=== PATIENT | male | born 1935 | race Caucasian/White ===

== ENCOUNTER 2019-03-04 09:00 | Inpatient (IN) ==
[2019-03-04] MEDS ORDERED: NS 1,000 ML IV SCH (11:52)
[2019-03-04] MEDS ORDERED: TYLENOL PO PRN (11:52)
[2019-03-04] MEDS: DUONEB (A & A) INH SCH ×4 (12:20→23:38)
[2019-03-04 12:47] LABS: BASO# 0.03 X1000 (0.0-0.2); BASO% 0.3 % (0.0-0.8); EOS# 0.01 X1000 (0.0-0.7); EOS% 0.1 % (0.0-10.0); HEMATOCRIT 43.9 % (42.0-52.0); HEMOGLOBIN 15.2 g/dL (14.0-18.0); IMM GRAN# 0.03 X1000 (0.0-0.04); IMM GRAN% 0.3 % (0.0-0.5); LYMPH# 0.75 X1000 (1.2-3.4); LYMPH% 6.3 % (20.5-51.1); MCH 32.4 PG (27-31); MCHC 34.6 g/dL (33-37); MCV 93.6 FL (81-99); MONO# 1.15 X1000 (0.11-0.59); MONO% 9.6 % (1.7-9.3); MPV 10.4 FL (7.4-10.4); NEUT% 83.4 % (42.2-75.2); PLT 155 X1000 (130-400); RBC 4.69 XMIL (4.7-6.1); RDW 14.1 % (11.5-14.5); WBC 11.97 X1000 (4.8-10.8)
--- NOTE | 2019-03-04 12:57 | EKG Report ---
Test Performed on : 03/04/2019 12:40:13 PM Test Reason : [place] Blood Pressure : / mmHG Vent. Rate : 090 BPM Atrial Rate : 115 BPM P-R Int : 000 ms QRS Dur : 134 ms QT Int : 440 ms P-R-T Axes : 000 -03 067 degrees QTc Int : 538 ms Wide QRS rhythm. with frequent and consecutive premature ventricular complexes. Nonspecific intraventricular block Cannot rule out Inferior infarct , age undetermined Cannot rule out Anterior infarct , age undetermined Abnormal ECG When compared with ECG of 01-FEB-2013 10:36, Wide QRS rhythm. has replaced Sinus rhythm. Confirmed by Libby MEI, Ozzy ([id number]) on 03/07/2019 8:46:26 AM
[2019-03-04 13:12] LABS: AGAP 14; ALB/GLOB RATIO 1.2; ALBUMIN 3.7 g/dL (3.5-5.0); ALKALINE PHOSPHATASE 89 U/L (32-122); BUN 10 mg/dL (8-22); CALCIUM 8.3 mg/dL (8.8-10.2); CHLORIDE 94 mmol/L (98-107); CK PROFILE 73 U/L (24-204); COSMO 265; ESTIMATED GFR > 60; GLUCOSE 123 mg/dL (70-104); GOT 21 U/L (10-34); GPT 15 U/L (10-44); SODIUM 132 mmol/L (136-145); TCO2 24 mmol/L (25-35); TOTAL BILIRUBIN 1.15 mg/dL (0.20-1.00); TOTAL PROTEIN 6.8 g/dL (6.3-8.3)
--- NOTE | 2019-03-04 13:18 | Diag Imaging Result Doc PS360 ---
EXAM: CHEST-2 VIEWS 03/04/2019 HISTORY: Pneumonia TECHNIQUE: PA and lateral chest COMMENT: The inspiration is not as optimal as on 12/24/2018 and there is increased opacity in both lung bases particularly in the left costophrenic angle region. There is also some increase in opacity in the mid lung zones and lower right upper lobe. IMPRESSION: Worsened pulmonary edema and/or pneumonia. Electronically signed by Pradeep Kiser 03/04/2019 1:15 PM
[2019-03-04] MEDS: ROCEPHIN 1 GM in NS 50 ML IV SCH (14:05)
[2019-03-04] MEDS: DOXYCYCLINE 100 MG in NS 250 ML IV SCH (14:06)
--- NOTE | 2019-03-04 16:03 | Diag Imaging Result Doc PS360 ---
EXAM: CT THORAX W/CONTRAST 03/04/2019 HISTORY: Pneumonia/ hemoptysis TECHNIQUE: This exam was performed using automated exposure control, adjustment of mA or kV according to patient size, and/or use of iterative reconstruction technique. COMMENT: The current examination is compared with the previous study of 01/06/2019. There is COPD. There are patchy areas of poorly defined opacity in both upper lobes and to some extent in the lung bases. This is worse than on the previous study. There are bilateral pleural effusions which were not present previously. Enlarged mediastinal nodes particularly those in the precarinal region demonstrated previously have not changed significantly. There is coronary atherosclerotic calcification. There is some mucus in the trachea. IMPRESSION: Pneumonia superimposed on COPD. Bilateral pleural effusions. Electronically signed by Pradeep Kiser 03/04/2019 4:00 PM
--- NOTE | 2019-03-04 20:00 | HISTORY AND PHYSICAL ---
PRIMARY CARE PHYSICIAN: Dr. Maximiliano Morris. CHIEF COMPLAINT: Shortness of breath. HISTORY OF PRESENT ILLNESS: An 83-year-old white male with a complicated past medical history presents for evaluation of above-mentioned symptoms. Current history of present illness began Thursday. At that time, patient states he walked into his den of his home and developed significant shortness of breath. Throughout the day his symptoms persisted. He initiated Mucinex without improvement. Soon thereafter, in addition to his shortness of breath, he experienced an episode of hemoptysis. The patient had a busy week and was unable to be evaluated. Over the course of the week, patient states he has been unable to sleep in his bed secondary to shortness of breath. He has had intermittent wheezing. He has noted low-grade fevers but no chills. His energy level has been very low. Because of progressive symptoms, patient presented to my office for further evaluation and management. Upon arrival, patient was noted to be profoundly short of breath with minimal exertion. White count was noted to be elevated. Examination was concerning for an underlying pneumonia. The patient was admitted to the hospital for full evaluation and management. Upon arrival, a chest x-ray was performed followed by a CT scan of the chest confirming underlying pneumonia. The patient will be admitted and treated appropriately. Of note, patient has a longstanding history of dyspnea on exertion. He carries diagnoses of ischemic heart disease as well as COPD. His ischemic heart disease has recently been evaluated by Dr. Pedro. His current symptoms are as described above. He denies nausea, vomiting, palpitations, dysuria, hematuria, pyuria, or change in bowel movements. PAST MEDICAL HISTORY: 1. Osteoarthritis of the right knee. 2. Benign prostatic hypertrophy status post TURP in January 2013. 3. Status post bilateral cataract removal in 2014. 4. Cervical spine disease status post surgical intervention in 1990 and 1994. 5. Chronic ischemic heart disease followed by Dr. Pedro. 6. Diverticulosis diagnosed in 1999 with a rare episode of diverticulitis since that time. 7. Hypertension. 8. Gout. 9. History of presumed hepatitis A in 1969. 10. Hyperlipidemia. 11. Impaired fasting glucose. 12. Chronic low back pain. 13. History of tobacco use. 14. Obstructive sleep apnea. 15. Osteoarthritis. 16. History of paroxysmal atrial fibrillation. 17. 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 18. Longstanding history of elevated PSA. 19. Chronic shortness of breath. 20. Minimal thrombocytopenia. 21. Lower extremity varicosities. 22. Longstanding history of intermittent vertigo. CURRENT MEDICATIONS: 1. B-complex vitamin daily. 2. Claritin 10 mg daily as needed. 3. Eliquis 5 mg twice daily. 4. Flecainide 150 mg twice daily. 5. Lasix 40 mg daily as needed. 6. Indomethacin 50 mg 3 times daily as needed. 7. Lisinopril 40 mg twice daily. 8. Meclizine 25 mg 1/2 to 1 tablet twice daily as needed. 9. Norvasc 5 mg at bedtime. 10. Potassium chloride 20 mEq daily as needed on days taking Lasix. 11. Simvastatin 20 mg at bedtime. ALLERGIES: Patient states he is allergic to codeine which causes a rash and Phenergan. SOCIAL HISTORY: The patient is a former smoker having smoked as much as 2-1/2 packs per day for 30 years. He stopped in 1985. He has approximately 1 to 3 drinks of alcohol per day. He denies illicit drug use. He is retired from [employer]. He currently works part-time with [employer]. He enjoys golf. He does not exercise routinely. FAMILY HISTORY: Patient's father passed at age 63 secondary to complications of an acute myocardial infarction. Patient's mother passed at age 95 secondary to complications of a shoulder fracture. REVIEW OF SYSTEMS: A 12 point review of systems was performed. Pertinent positives and negatives noted in history present illness. PHYSICAL EXAMINATION: VITAL SIGNS: Temperature 98 degrees, heart rate 86, respirations 18, blood pressure is 142/82. GENERAL: Well nourished, well developed, no acute distress. HEENT: Normocephalic, atraumatic. Pupils equal, round, reactive to light. Extraocular muscles intact. Sclerae anicteric. [place] conjunctivae. Oral and nasopharynx clear without exudate. NECK: Supple. No lymphadenopathy. No thyromegaly. No bruits auscultated. CARDIOVASCULAR: Regular rate and rhythm. No significant murmurs, rubs, or gallops. PULMONARY: Crackles at the right base. Adequate air movement. ABDOMEN: Soft, nontender, nondistended. Positive bowel sounds. EXTREMITIES: Moves all extremities well. No significant clubbing, cyanosis, or edema. NEUROLOGIC: Cranial nerves 2-12 grossly intact. Motor and sensory grossly intact. PSYCHOLOGIC: Appropriate. LABORATORY DATA: White blood cell count 11.97, hemoglobin 15.2, hematocrit 43.9, platelet count 155,000. Sodium 132, potassium 4.0, chloride 94, bicarb 24, BUN 10, creatinine 1.0, glucose 123, calcium 8.3, total bilirubin 1.15, total protein 6.8, albumin 3.7, alkaline phosphatase 89, AST 21, ALT 15. CK total 73, troponin less than 0.010. CT scan of the chest reveals pneumonia superimposed on COPD. Bilateral pleural effusions. ASSESSMENT AND PLAN: An 83-year-old white male with past medical history as noted presents for evaluation of profound shortness of breath. CT scan of the chest is consistent with bilateral pneumonia with associated pleural effusions. The patient will be admitted to the hospital for full evaluation and management of this condition. 1. Admit to General Medicine. 2. Pneumonia-as above, this is confirmed per CT scan of the chest. Blood cultures have been drawn. Sputum culture has been ordered. The patient will be started on ceftriaxone and doxycycline therapy. We will initiate routine bronchodilators. We will encourage incentive spirometry and aspiration precautions. 3. Hemoptysis-this is quite concerning. CT scan, however, suggest only pneumonia. No evidence of malignancy is identified. We will remain aware. 4. Bilateral pleural effusions-at this point, this likely is parapneumonic. We will treat patient with antibiotic intervention. We will consider adding a dose of Lasix once his condition has stabilized. 5. Profound shortness of breath-this is likely secondary to above. The patient's oxygen saturation on room air was 90%. He has been placed on oxygen per protocol. We will aggressively manage his pneumonia as described above. 6. Hypertension-we will continue patient on home medications. 7. Hyperlipidemia-we will continue patient on simvastatin therapy. 8. Paroxysmal atrial fibrillation-we will continue flecainide. He is anticoagulated with Eliquis. He is currently asymptomatic in a sinus-generated rhythm. 9. Fluid, electrolytes, nutrition. We will monitor electrolytes. Saline lock IV. Cardiac prudent diet. 10. Prophylaxis. Patient will be continued on Eliquis therapy. cc: Maximiliano Morris MD
[2019-03-04] MEDS: MUCINEX DM PO SCH (20:10)
[2019-03-04] MEDS: ELIQUIS PO SCH (23:34)
[2019-03-04] MEDS: NORVASC PO SCH (23:34)
[2019-03-04] MEDS: ZOCOR PO SCH (23:35)
[2019-03-04] MEDS: PRINIVIL PO SCH (23:35)
[2019-03-04] MEDS: TAMBOCOR PO SCH (23:36)
[2019-03-05] MEDS: DOXYCYCLINE 100 MG in NS 250 ML IV SCH ×2 (01:43→14:36)
[2019-03-05] MEDS: DUONEB (A & A) INH SCH ×6 (03:27→23:21)
[2019-03-05 07:37] LABS: BASO# 0.04 X1000 (0.0-0.2); BASO% 0.4 % (0.0-0.8); EOS# 0.04 X1000 (0.0-0.7); EOS% 0.4 % (0.0-10.0); HEMATOCRIT 41.6 % (42.0-52.0); HEMOGLOBIN 14.3 g/dL (14.0-18.0); IMM GRAN# 0.03 X1000 (0.0-0.04); IMM GRAN% 0.3 % (0.0-0.5); LYMPH# 1.06 X1000 (1.2-3.4); LYMPH% 10.8 % (20.5-51.1); MCH 32.3 PG (27-31); MCHC 34.4 g/dL (33-37); MCV 93.9 FL (81-99); MONO# 1.08 X1000 (0.11-0.59); MPV 10.9 FL (7.4-10.4); NEUT% 77.1 % (42.2-75.2); PLT 126 X1000 (130-400); RBC 4.43 XMIL (4.7-6.1); RDW 14.1 % (11.5-14.5); WBC 9.85 X1000 (4.8-10.8)
[2019-03-05 07:46] LABS: AGAP 12; ALB/GLOB RATIO 1.4; ALBUMIN 3.6 g/dL (3.5-5.0); ALKALINE PHOSPHATASE 77 U/L (32-122); BUN 10 mg/dL (8-22); CALCIUM 7.6 mg/dL (8.8-10.2); CHLORIDE 98 mmol/L (98-107); COSMO 266; CREATININE 0.9 mg/dL (0.7-1.2); ESTIMATED GFR > 60; GLUCOSE 115 mg/dL (70-104); GOT 17 U/L (10-34); GPT 12 U/L (10-44); POTASSIUM 3.9 mmol/L (3.5-5.1); SODIUM 133 mmol/L (136-145); TCO2 23 mmol/L (25-35); TOTAL BILIRUBIN 1.07 mg/dL (0.20-1.00); TOTAL PROTEIN 6.2 g/dL (6.3-8.3)
[2019-03-05] MEDS ORDERED: LASIX IV ONE (09:37)
[2019-03-05] MEDS ORDERED: KLOR-CON PO ONE (09:37)
[2019-03-05] MEDS: TAMBOCOR PO SCH ×3 (10:02→22:37)
[2019-03-05] MEDS: ELIQUIS PO SCH ×3 (10:03→22:37)
[2019-03-05] MEDS: VICON-C PO SCH (10:03)
[2019-03-05] MEDS: MUCINEX DM PO SCH ×3 (10:03→22:38)
[2019-03-05] MEDS: PRINIVIL PO SCH ×3 (10:03→22:38)
--- NOTE | 2019-03-05 10:05 | PROGRESS NOTE ---
DATE: 03/05/2019 SUBJECTIVE: Patient was admitted yesterday with profound shortness of breath. Full evaluation was pursued. Chest x-ray and CT scan suggested an underlying pneumonia. Bilateral pleural effusions were also identified. The patient was started on broad-spectrum antibiotics, oxygen per protocol, and bronchodilators. Over the course of the first 24 hours, patient's overall condition has improved slightly. He continues to have hemoptysis, although this has decreased. He continues to have considerable shortness of breath, although this has improved with oxygen supplementation. He denies current fevers, chills, nausea, vomiting, or chest discomfort. OBJECTIVE: T-max 98.4 degrees, heart rate 73 to 89, respirations 16 to 22, blood pressure 127 to 146 over 66 to 83.General: Well nourished, well developed, no acute distress. Cardiovascular: Regular rate and rhythm. No significant murmurs, rubs, or gallops. Pulmonary: Crackles at bilateral bases, right greater than left, adequate air movement. Abdomen: Soft, nontender, nondistended. Positive bowel sounds. Extremities: Moves all extremities well. No significant clubbing, cyanosis, or edema. Dermatologic: Evaluation reveals no evidence of rash. LABORATORY DATA: White blood cell count 9.85, hemoglobin 14.3, hematocrit 41.6, platelet count 126,000. Sodium 133, potassium 3.9, chloride 98, bicarb 23, BUN 10, creatinine 0.9, glucose 115, calcium 9.6, total bilirubin 1.07, total protein 6.2, albumin 3.6, alkaline phosphatase 77, AST 17, ALT 12. ASSESSMENT AND PLAN: 1. Pneumonia - I suspect this is community-acquired. With Rocephin and doxycycline therapy, his white blood cell count has improved. He does, however, continue to have hemoptysis and significant shortness of breath/hypoxia. Each will be addressed as below. For now, we will continue bronchodilators and broad-spectrum antibiotic coverage. We will encourage incentive spirometry. We will follow his clinical course very closely while hospitalized. 2. Hemoptysis. This likely is a consequence of his underlying pneumonia. There was no evidence of malignancy per CT scan. We will continue aggressive management of pneumonia as above. 3. Bilateral pleural effusions - I suspect this is parapneumonic. I cannot fully rule out underlying cardiac etiology contributing. We will provide a dose of Lasix today. Once again, this will be followed. 4. Profound shortness of breath/hypoxia - patient is being treated with oxygen per protocol. We will treat pneumonia as described above. 5. Hypertension - we will continue patient on home medications. Blood pressure is controlled. 6. Hyperlipidemia - we will continue patient on simvastatin therapy. 7. Paroxysmal atrial fibrillation - patient is treated with flecainide. He is anticoagulated with Eliquis. He remains in a sinus-generated rhythm this morning. 8. Disposition - at this point, patient continues to require snf care in a hospital setting. We will plan discharge home once appropriate. cc: Maximiliano Morris MD
[2019-03-05] MEDS: ROCEPHIN 1 GM in NS 50 ML IV SCH (11:47)
[2019-03-05] MEDS: ZOCOR PO SCH ×2 (19:53→22:37)
[2019-03-05] MEDS: NORVASC PO SCH ×2 (19:53→22:38)
[2019-03-06] MEDS: DOXYCYCLINE 100 MG in NS 250 ML IV SCH ×2 (00:57→14:39)
[2019-03-06] MEDS: DUONEB (A & A) INH SCH ×6 (03:10→23:32)
[2019-03-06 07:31] LABS: BASO# 0.02 X1000 (0.0-0.2); BASO% 0.2 % (0.0-0.8); EOS# 0.05 X1000 (0.0-0.7); EOS% 0.5 % (0.0-10.0); HEMATOCRIT 41.3 % (42.0-52.0); HEMOGLOBIN 14.2 g/dL (14.0-18.0); IMM GRAN# 0.02 X1000 (0.0-0.04); IMM GRAN% 0.2 % (0.0-0.5); LYMPH# 1.12 X1000 (1.2-3.4); LYMPH% 11.2 % (20.5-51.1); MCH 32.3 PG (27-31); MCHC 34.4 g/dL (33-37); MCV 93.9 FL (81-99); MONO# 1.01 X1000 (0.11-0.59); MONO% 10.1 % (1.7-9.3); MPV 10.5 FL (7.4-10.4); NEUT# 7.74 X1000 (1.4-6.5); NEUT% 77.8 % (42.2-75.2); PLT 123 X1000 (130-400); WBC 9.96 X1000 (4.8-10.8)
[2019-03-06 07:54] LABS: AGAP 14; ALB/GLOB RATIO 0.9; ALBUMIN 3.3 g/dL (3.5-5.0); ALKALINE PHOSPHATASE 74 U/L (32-122); BUN 8 mg/dL (8-22); CALCIUM 8.6 mg/dL (8.8-10.2); CHLORIDE 99 mmol/L (98-107); COSMO 268; CREATININE 0.8 mg/dL (0.7-1.2); ESTIMATED GFR > 60; GLUCOSE 128 mg/dL (70-104); GOT 18 U/L (10-34); GPT 12 U/L (10-44); POTASSIUM 3.9 mmol/L (3.5-5.1); SODIUM 134 mmol/L (136-145); TCO2 21 mmol/L (25-35); TOTAL BILIRUBIN 0.92 mg/dL (0.20-1.00)
[2019-03-06] MEDS: MUCINEX DM PO SCH ×2 (09:01→20:10)
[2019-03-06] MEDS: TAMBOCOR PO SCH ×2 (09:02→20:09)
[2019-03-06] MEDS: ELIQUIS PO SCH ×2 (09:02→20:08)
[2019-03-06] MEDS: PRINIVIL PO SCH ×2 (09:02→20:08)
[2019-03-06] MEDS: VICON-C PO SCH (09:02)
[2019-03-06] MEDS ORDERED: LASIX IV ONE (09:30)
[2019-03-06] MEDS ORDERED: KLOR-CON PO ONE (09:31)
--- NOTE | 2019-03-06 10:01 | PROGRESS NOTE ---
DATE: 03/06/2019 SUBJECTIVE: The patient's overall condition continues to be largely unchanged. Patient was admitted with significant shortness of breath associated with pneumonia. The patient continues to experience shortness of breath, primarily with exertion. His cough and hemoptysis are present, but improving. He experienced low-grade fever to 100 yesterday, but otherwise remains afebrile. Oxygen saturations are adequate on oxygen supplementation. He denies nausea, vomiting, chest pains, or palpitations. OBJECTIVE: T-max 100 degrees, heart rate 76-85, respirations 16-23, blood pressure 123 to 152 over 72 to 79.General: Well nourished, well developed, no acute distress. Cardiovascular: Regular rate and rhythm. No significant murmurs, rubs, or gallops. Pulmonary: Crackles at bilateral bases. Adequate air movement. Abdomen: Soft, nontender, nondistended. Positive bowel sounds. Extremities: Moves all extremities well. No significant clubbing, cyanosis, or edema. Dermatologic: Evaluation reveals no evidence of rash. LABORATORY DATA: White blood cell count 9.96 hemoglobin 14.2, hematocrit 41.3, platelet count 123,000. Sodium 134, potassium 3.9, chloride 99, bicarbonate 21, BUN 8, creatinine 0.8, glucose 128, calcium 8.6, total bilirubin 0.92, total protein 7.0, albumin 3.3, alkaline phosphatase 74, AST 18, ALT 12. ASSESSMENT AND PLAN: 1. Pneumonia. Patient's overall condition is at least stable, if not slightly improved from admission. We will continue Rocephin, doxycycline, and bronchodilators. We will encourage incentive spirometry and aspiration precautions. I suspect with more time and antibiotic intervention his condition will continue to improve. 2. Hemoptysis. As described on previous notes, no evidence of malignancy was identified per CT scan. This likely is a consequence of his pneumonia. We will continue antibiotic coverage as above. We will follow his sputum culture. 3. Bilateral pleural effusions. I suspect this is parapneumonic. I cannot, however, rule out a cardiac etiology. The patient was provided a dose of Lasix yesterday. He diuresed reasonably well. We will re-dose Lasix today. Once again, this will be followed. Should his condition continue to persist, we will consider Pulmonology consultation. 4. Profound shortness of breath/hypoxia. Patient is being treated with oxygen per protocol. We will continue treatment of pneumonia and bilateral pleural effusions as above. 5. Hypertension. Patient's blood pressure is slightly elevated despite his home regimen. For now, we will continue these medications and consider titration if this remains elevated. 6. Hyperlipidemia. We will continue patient on simvastatin therapy. 7. Paroxysmal atrial fibrillation. Patient remains in sinus generated rhythm on flecainide therapy. He is anticoagulated with Eliquis. We will remain aware that anticoagulation is likely playing a role in his hemoptysis. DISPOSITION: At this point, patient continues to require [facility] care in a hospital setting. We will plan discharge home once appropriate. cc: Maximiliano Morris MD
[2019-03-06] MEDS: ROCEPHIN 1 GM in NS 50 ML IV SCH (12:40)
[2019-03-06] MEDS: NORVASC PO SCH (20:09)
[2019-03-06] MEDS: ZOCOR PO SCH (20:09)
[2019-03-07] MEDS: DOXYCYCLINE 100 MG in NS 250 ML IV SCH ×2 (01:15→12:50)
[2019-03-07] MEDS: DUONEB (A & A) INH SCH ×6 (03:16→23:11)
[2019-03-07 08:00] LABS: AGAP 11; BUN 8 mg/dL (8-22); CALCIUM 8.4 mg/dL (8.8-10.2); CHLORIDE 94 mmol/L (98-107); COSMO 258; CREATININE 0.8 mg/dL (0.7-1.2); ESTIMATED GFR > 60; GLUCOSE 108 mg/dL (70-104); POTASSIUM 4.2 mmol/L (3.5-5.1); SODIUM 129 mmol/L (136-145); TCO2 24 mmol/L (25-35)
[2019-03-07] MEDS: VICON-C PO SCH (08:22)
[2019-03-07] MEDS: PRINIVIL PO SCH ×2 (08:22→21:49)
[2019-03-07] MEDS: ELIQUIS PO SCH ×2 (08:22→21:48)
[2019-03-07] MEDS: TAMBOCOR PO SCH ×2 (08:22→21:48)
[2019-03-07] MEDS: MUCINEX DM PO SCH ×2 (08:23→21:49)
[2019-03-07] MEDS: ROCEPHIN 1 GM in NS 50 ML IV SCH (12:30)
--- NOTE | 2019-03-07 20:07 | PROGRESS NOTE ---
DATE: 03/07/2019 SUBJECTIVE: Patient was originally seen this morning. At that time, patient noted persistent cough, congestion, and intermittent hemoptysis. He did, however, note mild improvement from yesterday. Throughout the day, patient states he did reasonably well. He was able to shower and shave, although independently secondary to fatigue and shortness of breath. This evening, patient again states he is demonstrating very slow improvement. He notes shortness of breath with minimal exertion. He denies fevers, chills, nausea, vomiting, or chest discomfort. OBJECTIVE: Vital signs: T-max 98.6 degrees, heart rate 79 to 88, respirations 17 to 19, blood pressure 112 to 151 over 47 to 87. General: Well nourished, well developed in no acute distress. Cardiovascular: Regular rate and rhythm. No significant murmurs, rubs, or gallops. Pulmonary: Crackles at bilateral bases. Abdomen: Soft, nontender, nondistended. Positive bowel sounds. Extremities: Moves all extremities well. No significant clubbing, cyanosis, or edema. Dermatologic: Evaluation reveals no evidence of rash. LABORATORY DATA: Sodium 129, potassium 4.2, chloride 94, bicarb 24, BUN 8, creatinine 0.8, glucose 108, calcium 8.4. ASSESSMENT AND PLAN: 1. Pneumonia--The patient's overall condition continues to very slowly improve. The patient is currently being treated with Rocephin, doxycycline, and bronchodilators. We will continue his current regimen and encourage incentive spirometry and aspiration precautions. We will continue oxygen per protocol. 2. Hemoptysis--CT scan suggested no evidence of underlying malignancy. This likely is a consequence of his pneumonia in the setting of anticoagulation. We will continue broad- spectrum coverage as described above. 3. Bilateral pleural effusions--This likely is parapneumonic. We did treat patient with IV Lasix over the course of the last 2 days. The patient has developed a hyponatremia as described below. We will hold Lasix today. We will continue to follow. 4. Profound shortness of breath/hypoxia--We will continue oxygen per protocol. This likely is a consequence of pneumonia and bilateral pleural effusions. The patient may require outpatient oxygen at discharge. 5. Hyponatremia--Patient's sodium has decreased from yesterday. This likely is secondary to diuresis. We will remain aware that this could be secondary to syndrome of inappropriate antidiuretic hormone secretion in the setting of pneumonia. We will hold diuresis today. 6. Hypertension--The patient's blood pressure is reasonably controlled on his current regimen. We will continue this. 7. Hyperlipidemia--We will continue patient on simvastatin therapy. 8. Paroxysmal atrial fibrillation--We will continue to follow patient with telemetry. He is treated with flecainide and anticoagulated with Eliquis. 9. Disposition--At this point, patient continues to require care home care in a hospital setting. We will plan discharge home once appropriate. cc: Maximiliano Morris MD
[2019-03-07] MEDS: ZOCOR PO SCH (21:47)
[2019-03-07] MEDS: NORVASC PO SCH (21:49)
[2019-03-08] MEDS: DOXYCYCLINE 100 MG in NS 250 ML IV SCH ×2 (02:02→19:01)
[2019-03-08] MEDS: DUONEB (A & A) INH SCH ×6 (03:08→23:55)
[2019-03-08 07:52] LABS: BASO# 0.02 X1000 (0.0-0.2); BASO% 0.2 % (0.0-0.8); EOS# 0.04 X1000 (0.0-0.7); EOS% 0.4 % (0.0-10.0); HEMATOCRIT 38.6 % (42.0-52.0); HEMOGLOBIN 13.4 g/dL (14.0-18.0); IMM GRAN# 0.04 X1000 (0.0-0.04); IMM GRAN% 0.4 % (0.0-0.5); LYMPH# 1.02 X1000 (1.2-3.4); LYMPH% 9.4 % (20.5-51.1); MCH 32.5 PG (27-31); MCHC 34.7 g/dL (33-37); MCV 93.7 FL (81-99); MONO% 13.9 % (1.7-9.3); MPV 10.7 FL (7.4-10.4); NEUT# 8.18 X1000 (1.4-6.5); NEUT% 75.7 % (42.2-75.2); PLT 137 X1000 (130-400); RBC 4.12 XMIL (4.7-6.1); RDW 13.3 % (11.5-14.5)
[2019-03-08 08:35] LABS: AGAP 10; BUN 9 mg/dL (8-22); CALCIUM 8.5 mg/dL (8.8-10.2); CHLORIDE 91 mmol/L (98-107); COSMO 251; CREATININE 0.7 mg/dL (0.7-1.2); ESTIMATED GFR > 60; GLUCOSE 111 mg/dL (70-104); POTASSIUM 4.6 mmol/L (3.5-5.1); SODIUM 125 mmol/L (136-145); TCO2 24 mmol/L (25-35)
[2019-03-08] MEDS ORDERED: LASIX IV ONE (08:54)
[2019-03-08] MEDS: PRINIVIL PO SCH ×2 (10:02→21:52)
[2019-03-08] MEDS: TAMBOCOR PO SCH ×2 (10:02→21:52)
[2019-03-08] MEDS: VICON-C PO SCH (10:05)
[2019-03-08] MEDS: MUCINEX DM PO SCH ×2 (10:05→21:53)
--- NOTE | 2019-03-08 12:07 | PULMONOLOGY CONSULTATION ---
DATE: 03/08/2019 REQUESTING PHYSICIAN: Dr. Maximiliano Morris. REASON FOR CONSULTATION: Hemoptysis, pneumonia, and respiratory failure. HISTORY OF PRESENT ILLNESS: Mr. Chacon is an 83-year-old, white male who is followed in my clinic with chronic obstructive pulmonary disease. The patient has a 60 pack year history for tobacco with prior asbestos exposure and known pleural plaques on his CT scan. The patient reports that last Thursday, he started coughing up blood. It may have had sputum admixed with the blood but it was predominantly bloody. He noted fatigue with increased shortness of breath and this continued daily through the week. He was evaluated by Dr. Morris and was admitted to the hospital on 03/04/2019. He has received antibiotics without clinical improvement. The patient has known coronary artery disease and a history of atrial fibrillation. The patient previously was maintained on aspirin but has been on Eliquis for at least one and a half to two years. At his most recent visit in December, he did report that he had started taking CBD oil for back pain with some clinical improvement in his symptoms. He denies fevers, chills, chest pain, or change in bowel or bladder habits. PAST MEDICAL HISTORY/PROBLEM LIST: 1. Mild COPD. His FEV1 falls in the normal range but his FEV1/FVC ratio is 55. 2. Atrial fibrillation. 3. History of elevated PSA. 4. Dyslipidemia. 5. Status post bilateral cataract removal. 6. Diverticulosis with a prior episode of diverticulitis. 7. Hypertension. 8. Chronic back pain, currently on CBD oil. 9. Obstructive sleep apnea. 10. Osteoarthritis. 11. Lower extremity venous insufficiency. SOCIAL HISTORY: The patient has at least a 60 pack year history for tobacco. He has not smoked for many years. He does drink alcohol on a daily basis. He uses CBD oil as per above. FAMILY HISTORY: Positive for coronary artery disease and lupus. REVIEW OF SYSTEMS: Notable for fatigue, increased cough, hemoptysis, dyspnea on exertion. PHYSICAL EXAMINATION: General: Reveals a healthy-appearing male who appears younger than his stated age of 83. He is awake, alert, and conversant. He does have some blood in the bedside basin. Vital Signs: Blood pressure 147/87, heart rate 86, respiratory rate 18, oxygen saturation 99% on 4 L per nasal cannula. HEENT: Pupils are equal and reactive. Oropharynx is clear. Neck: Supple. Chest: Reveals crackles in the lung bases. Cardiac Examination: S1-S2. Abdomen: Soft and without hepatosplenomegaly. Extremities: Reveal cyanosis when feet are in the dependent position. LABORATORIES: White blood count 10.80, hemoglobin 13.4, platelet count 137,000. Sodium 125, potassium 4.6, chloride 91, bicarbonate 24, BUN 9, creatinine 0.7. CT scan on 03/04/2019 and 01/06/[address] Dilan Pedro are compared. The patient has stable pleural plaquing in the lung bases. He has areas of COPD and some nonspecific pulmonary scarring. He has some fluctuating infiltrates. Some areas look better on current scan and some areas looks slightly worse when compared to 01/06/2019. IMPRESSION: An 83-year-old with extensive tobacco history, chronic obstructive pulmonary disease, nonspecific fibrosis on the CT scan, with hemoptysis, acute hypoxemic respiratory failure, and small pleural effusions. The patient is on Eliquis and this may explain his hemoptysis. No specific lesion is identified. It is interesting to note that the patient has started using CBC oil. CBD oil is a potent inhibitor of CYP 3a4 on the cytochrome 450 pathway and this is one of the major routes of elimination for Eliquis. It is not clear whether he may have had a drug interaction associated with the CBD oil. RECOMMENDATIONS: 1. Check an Eliquis trough level. He was scheduled for 9 a.m. so it will be slightly delayed if it is collected now, which is close to 11:30. 2. Hold Eliquis pending resolution of hemoptysis. 3. Single dose of diuretics. The patient reports he is not drinking significant water during this hospitalization. 4. Anticipate followup CT scan and possible bronchoscopy. cc: MD Maximiliano Minor MD
[2019-03-08] MEDS: ROCEPHIN 1 GM in NS 50 ML IV SCH (16:35)
[2019-03-08] MEDS ORDERED: NS 500 ML ONE (16:49)
[2019-03-08] MEDS ORDERED: MIRALAX PO PRN (19:14)
[2019-03-08] MEDS: NORVASC PO SCH (21:52)
[2019-03-08] MEDS: ZOCOR PO SCH (21:52)
--- NOTE | 2019-03-08 22:03 | PROGRESS NOTE ---
DATE: 03/08/2019 SUBJECTIVE: This morning, upon my arrival, the patient was resting in bed. He noted persistent cough, congestion and intermittent hemoptysis. Energy level remains very low. He continues to have considerable shortness of breath. Through the course of the day, the patient did have some mild improvement. He walked with physical therapy. After doing so, the patient states he experienced significant fatigue. He denies current fevers, chills, nausea, vomiting, shortness of breath or chest discomfort. OBJECTIVE: T-max 98.5 degrees, heart rate 64 to 86, respirations 16 to 18, blood pressure 116 to 147 over 73 to 87. General: Well nourished, well developed, no acute distress. Cardiovascular: Regular rate and rhythm. No significant murmurs, rubs or gallops. Pulmonary: Crackles at bilateral bases. Abdomen soft, nontender, nondistended. Positive bowel sounds. Extremities: Moves all extremities well. No significant clubbing, cyanosis or edema. Dermatologic evaluation reveals no evidence of rash. LABORATORY DATA: White blood cell count 10.80, hemoglobin 13.4, hematocrit 38.6, platelet count 137,000. Sodium 125, potassium 4.6, chloride 91, bicarbonate 24, BUN 9, creatinine 0.7, glucose 111, calcium 8.5. ASSESSMENT AND PLAN: 1. Pneumonia: The patient currently is being treated with Rocephin, doxycycline and bronchodilators. His overall condition is very slowly improving. Because of the slow improvement/prolonged course, Dr. Rosas was consulted. Further pulmonary recommendations will be made per his discretion. 2. Hemoptysis: The patient's CT scan suggested no evidence of underlying malignancy. This likely is a consequence of pneumonia in the setting of anticoagulation. The patient's Eliquis has been held. We will follow this as well. 3. Bilateral pleural effusions: The patient was diuresed again today. We will remain aware. These effusions may indeed be parapneumonic. 4. Profound shortness of breath/hypoxia: We will continue treatment of underlying pneumonia as described above. We will continue oxygen per protocol. 5. Hyponatremia: We will remain aware, especially in the setting of diuresis. 6. Hypertension: The patient's blood pressure is reasonably controlled on his current regimen. 7. Hyperlipidemia: We will continue simvastatin therapy. 8. Paroxysmal atrial fibrillation: The patient is treated with flecainide therapy. He remains in a sinus-generated rhythm. His anticoagulation will be held as described above. 9. Disposition: At this point, the patient continues to require snf care in a hospital setting. We will plan discharge home once appropriate. cc: Maximiliano Morris MD
[2019-03-09] MEDS: DOXYCYCLINE 100 MG in NS 250 ML IV SCH ×2 (01:44→14:25)
[2019-03-09] MEDS: DUONEB (A & A) INH SCH ×6 (03:35→23:25)
[2019-03-09 08:05] LABS: AGAP 10; BUN 11 mg/dL (8-22); CALCIUM 8.2 mg/dL (8.8-10.2); CHLORIDE 90 mmol/L (98-107); COSMO 253; CREATININE 0.8 mg/dL (0.7-1.2); ESTIMATED GFR > 60; GLUCOSE 102 mg/dL (70-104); POTASSIUM 3.8 mmol/L (3.5-5.1); SODIUM 126 mmol/L (136-145); TCO2 26 mmol/L (25-35)
--- NOTE | 2019-03-09 08:26 | Diag Imaging Result Doc PS360 ---
CHEST-2 VIEWS - 03/09/2019 INDICATION: abnormal exam COMPARISON: 03/04/2019 FINDINGS: There is been significant worsening in the heterogeneous infiltrate mainly throughout the left lung, worse at the left upper lobe. Stable patchy infiltrates in the right lung as well. There are probably trace pleural effusions. There is cardiomegaly. Lungs are hyperexpanded compatible with COPD. IMPRESSION: Severe worsening in infiltrate throughout the left lung compatible with pneumonia. Electronically signed by Hua Herring 03/09/2019 8:24 AM
[2019-03-09] MEDS: TAMBOCOR PO SCH ×2 (10:00→20:18)
[2019-03-09] MEDS: VICON-C PO SCH (10:02)
[2019-03-09] MEDS: PRINIVIL PO SCH ×2 (10:02→20:18)
[2019-03-09] MEDS: MUCINEX DM PO SCH ×2 (10:02→20:18)
[2019-03-09] MEDS: ROCEPHIN 1 GM in NS 50 ML IV SCH (12:47)
--- NOTE | 2019-03-09 19:48 | PROGRESS NOTE ---
DATE: 03/09/2019 SUBJECTIVE: This morning, the patient complained of persistent cough and congestion. He did not sleep well overnight. Throughout the day, the patient did increase his activity. This evening, the patient does note some improvement in his overall condition. He continues to require oxygen supplementation to maintain adequate saturation. He denies fevers, chills, chest pains, or palpitations. OBJECTIVE: Vital signs: T-max 98.5 degrees, heart rate 50-64, respirations 16-20, blood pressure 106-150 over 61-73. General: Well nourished, well developed, no acute distress. Cardiovascular: Regular rate and rhythm. No significant murmurs, rubs, or gallops. Pulmonary: Crackles at bilateral bases. Adequate air movement. Abdomen: Soft, nontender, nondistended. Positive bowel sounds. Extremities: Moves all extremities well. No significant clubbing, cyanosis, or edema. Dermatologic: No evidence of rash. LABORATORY DATA: Sodium 126, potassium 3.8, chloride 90, bicarb 26, BUN 11, creatinine 0.8, glucose 102, calcium 8.2. IMAGING STUDIES: Chest x-ray suggests severe worsening in infiltrates throughout the left lung, compatible with pneumonia. ASSESSMENT AND PLAN: 1. Pneumonia - Clinically, the patient has shown some improvement. White blood cell count is within normal limits. He remains afebrile. Unfortunately, chest x-ray suggests progression. For now, we will continue Rocephin, doxycycline, and bronchodilators. We will discuss this further with Dr. Rosas. The question is raised whether this could also represent pulmonary hemorrhage in the setting of hemoptysis. We will continue to hold his Eliquis for now. 2. Hemoptysis - CT scan has not suggested underlying malignancy. He did, however, have pneumonia. This likely is the source. His Eliquis has been held. Despite this, he continues to have some hemoptysis. We will follow this as well. 3. Bilateral pleural effusions - This likely is parapneumonic. He has been diuresed. Current chest x-ray suggests only trace effusions present. 4. Profound shortness of breath/hypoxia - We will continue oxygen per protocol. 5. Hyponatremia - Sodium remains stable. We will continue to follow this closely, especially with diuresis. 6. Hypertension - Blood pressure is reasonably controlled on his current regimen. 7. Hyperlipidemia - We will continue simvastatin therapy. 8. Paroxysmal atrial fibrillation - We will continue flecainide therapy. He remains in a sinus- generated rhythm. 9. Disposition - At this point, the patient continues to require retirement care in a hospital setting. We will plan discharge home once appropriate. cc: Maximiliano Morris MD
--- NOTE | 2019-03-09 19:50 | PULMONOLOGY PROGRESS NOTE ---
DATE: 03/09/2019 SUBJECTIVE: The patient is awake, alert. He reports his appetite has marginally improved, but he is forcing himself to eat. He continues to have some cough and bloody sputum production, but believes it may have slightly decreased. OBJECTIVE: Vital Signs: The patient has been afebrile for the last 24 hours. Blood pressure 139/61, heart rate 64, respiratory rate 16, oxygen saturation 100% on nasal cannula. HEENT: Pupils are equal and reactive. Oropharynx is clear. Neck: Supple. Chest: Reveals crackles in the lung bases. Cardiac: S1, S2. Abdomen: Soft, with good bowel sounds. Extremities: Reveal some cyanosis to the lower extremities while dependent. IMAGING: Chest x-ray reveals increased infiltrates in the left lung and in the right lung as well. IMPRESSION: An 83-year-old with acute hypoxemic respiratory failure, hemoptysis, bilateral infiltrates. DISCUSSION: An 83-year-old with problems outlined above. The patient was on Eliquis, whose metabolism may have been altered by taking CBD oil. His hemoptysis may have slightly decreased. The patient does have bilateral infiltrates which I suspect represent alveolar hemorrhage. Clinically, he appears nontoxic and is not having fevers or significant increase in oxygen requirements. This would be compatible with alveolar bleeding. RECOMMENDATION: 1. Continue to hold Eliquis. 2. Continue bronchial hygiene. 3. Agree with broad spectrum antibiotics, although it is not certain this represents an infectious process. cc: MD Maximiliano Minor MD
[2019-03-09] MEDS: NORVASC PO SCH (20:18)
[2019-03-09] MEDS: ZOCOR PO SCH (20:19)
[2019-03-10] MEDS: DOXYCYCLINE 100 MG in NS 250 ML IV SCH ×3 (00:42→14:40)
[2019-03-10] MEDS: DUONEB (A & A) INH SCH ×6 (03:15→23:40)
[2019-03-10 07:50] LABS: BASO# 0.03 X1000 (0.0-0.2); BASO% 0.3 % (0.0-0.8); EOS# 0.09 X1000 (0.0-0.7); EOS% 0.8 % (0.0-10.0); HEMATOCRIT 40.1 % (42.0-52.0); HEMOGLOBIN 14.1 g/dL (14.0-18.0); IMM GRAN# 0.04 X1000 (0.0-0.04); IMM GRAN% 0.4 % (0.0-0.5); LYMPH# 1.22 X1000 (1.2-3.4); LYMPH% 11.2 % (20.5-51.1); MCH 32.5 PG (27-31); MCHC 35.2 g/dL (33-37); MCV 92.4 FL (81-99); MONO# 1.12 X1000 (0.11-0.59); MONO% 10.3 % (1.7-9.3); MPV 10.5 FL (7.4-10.4); NEUT# 8.41 X1000 (1.4-6.5); PLT 182 X1000 (130-400); RBC 4.34 XMIL (4.7-6.1); WBC 10.91 X1000 (4.8-10.8)
[2019-03-10 08:45] LABS: BUN 12 mg/dL (8-22); CALCIUM 8.6 mg/dL (8.8-10.2); CREATININE 0.8 mg/dL (0.7-1.2); ESTIMATED GFR > 60; GLUCOSE 105 mg/dL (70-104); GOT 36 U/L (10-34); MAGNESIUM 1.8 mg/dL (1.5-2.7); PHOSPHORUS 2.5 mg/dL (2.7-4.5); TCO2 23 mmol/L (25-35); TOTAL BILIRUBIN 0.64 mg/dL (0.20-1.00); TOTAL PROTEIN 6.6 g/dL (6.3-8.3)
[2019-03-10 08:48] LABS: AGAP 13; ALB/GLOB RATIO 1.1; ALBUMIN 3.4 g/dL (3.5-5.0); ALKALINE PHOSPHATASE 65 U/L (32-122); CHLORIDE 88 mmol/L (98-107); COSMO 250; GPT 19 U/L (10-44); SODIUM 124 mmol/L (136-145)
[2019-03-10 08:49] LABS: POTASSIUM 5.2 mmol/L (3.5-5.1)
[2019-03-10] MEDS: MUCINEX DM PO SCH ×2 (10:56→20:19)
[2019-03-10] MEDS: TAMBOCOR PO SCH ×2 (10:57→20:19)
[2019-03-10] MEDS: PRINIVIL PO SCH ×2 (10:58→20:19)
[2019-03-10] MEDS: VICON-C PO SCH (10:59)
[2019-03-10] MEDS: ROCEPHIN 1 GM in NS 50 ML IV SCH (12:21)
[2019-03-10] MEDS: NORVASC PO SCH (20:19)
[2019-03-10] MEDS: ZOCOR PO SCH (20:19)
--- NOTE | 2019-03-10 20:42 | PROGRESS NOTE ---
DATE: 03/10/2019 SUBJECTIVE: This morning, upon my arrival, patient noted a persistent cough, congestion, and shortness of breath. The hemoptysis had persisted. No significant change had been noted overnight. Throughout the day today, the patient continued to have persistent symptoms. This evening, he notes eating reasonably well. His energy level remains extremely low. He continues to have significant shortness of breath with minimal exertion. He denies fevers, chills, nausea, vomiting, or chest discomfort. OBJECTIVE: Vital Signs: Maximum temperature 97.4 degrees, heart rate 53 to 62, respirations 18 to 22, blood pressure 126 to 143 over 52 to 80. General: Well nourished, well developed, no acute distress. Cardiovascular: Regular rate and rhythm. No significant murmurs, rubs, or gallops. Pulmonary: Crackles at bilateral bases. Reasonable air movement. Abdomen: Soft, nontender, nondistended. Positive bowel sounds. Extremities: Moves all extremities well. No significant clubbing, cyanosis, or edema. Dermatologic: Evaluation reveals no evidence of rash. LABORATORY DATA: White blood cell count 10.91, hemoglobin 14.1, hematocrit 40.1, platelet count 182,000. Sodium 124, potassium 5.2, chloride 88, bicarb 23, BUN 12, creatinine 0.8, glucose 105, calcium 8.6, phosphorus 2.5, magnesium 1.8, total bilirubin 0.64, total protein 6.6, albumin 3.4, alkaline phosphatase 65, AST 36, ALT 19. ASSESSMENT AND PLAN: 1. Pneumonia. Clinically, patient has demonstrated minimal improvement with Rocephin, doxycycline, and bronchodilators. His hemoptysis persists despite discontinuing Eliquis therapy. The concern for alveolar hemorrhage has been raised, precipitating his persistent symptoms. I appreciate Dr. Rosas's consultation. We will continue his current antibiotic and bronchodilator regimen for his pneumonia. 2. Hemoptysis. This likely is a consequence of alveolar hemorrhage in the setting of pneumonia and anticoagulation. He previously had been using cannabidiol (CBD) oil, which may have exacerbated this condition. We will continue to hold Eliquis therapy. We will follow. 3. Bilateral pleural effusions. The patient has been diuresed successfully. As of last chest x- ray, only trace effusions were present. 4. Profound shortness of breath/hypoxia. Will continue oxygen per protocol. 5. Hyponatremia. The patient's sodium remains slightly low, but stable. We will remain aware, especially in the setting of diuresis. 6. Hyperkalemia. This is quite interesting. He had a significant jump from yesterday. I suspect this represents hemolysis. We will recheck in the morning. 7. Hypertension. Blood pressure is reasonably controlled on his current regimen. 8. Hyperlipidemia. We will continue simvastatin therapy. 9. Paroxysmal atrial fibrillation. The patient is well controlled with flecainide therapy. He is in a sinus-generated rhythm. 10. Disposition. At this point, the patient continues to require long-term care in a hospital setting. We will plan discharge home once appropriate. cc: Maximiliano Morris MD
--- NOTE | 2019-03-10 21:18 | PULMONOLOGY PROGRESS NOTE ---
DATE: 03/10/2019 SUBJECTIVE: The patient is awake, alert and conversant. He continues to cough up bloody sputum, but it is intermittently clear. He reports the sputum is now more jelly-like in consistency. OBJECTIVE: General: The patient is awake, alert and conversant. He is without new complaints. Vital Signs: Blood pressure 126/52, heart rate 60, respiratory rate 18, oxygen saturation 93%. HEENT: Pupils are equal and reactive. Oropharynx appears clear. Neck: Supple. Chest: Chest reveals crackles bilaterally. Cardiac: S1, S2. Abdomen: Soft and without hepatosplenomegaly. Extremities: Without edema. LABORATORIES: Sodium 124, potassium 5.2, chloride 88, bicarbonate 23, BUN 12, creatinine 0.8. Eliquis level should be pending, although I do not see an order present. White blood count 10.1, hemoglobin 14.1, platelet count 182,000. IMPRESSION: An 83-year-old with: 1. Acute hypoxemic respiratory failure. 2. Hemoptysis. 3. Bilateral pulmonary infiltrates. PLAN: 1. Continue to hold Eliquis. 2. Continue bronchial hygiene. 3. Check a CRP, along with coag levels tomorrow morning. 4. Continue broad-spectrum antibiotics. 5. Will do an additional evaluation for other causes of alveolar hemorrhage such as Terri's and Goodpasture syndrome if he does not continue to have a decrease in bloody sputum over the next 24 to 48 hours. cc: MD Maximiliano Minor MD MTDSandy
[2019-03-11] MEDS: DOXYCYCLINE 100 MG in NS 250 ML IV SCH ×2 (01:15→15:49)
[2019-03-11] MEDS: DUONEB (A & A) INH SCH ×6 (03:20→23:35)
[2019-03-11 08:07] LABS: BASO# 0.02 X1000 (0.0-0.2); BASO% 0.2 % (0.0-0.8); EOS# 0.07 X1000 (0.0-0.7); EOS% 0.6 % (0.0-10.0); HEMATOCRIT 37.8 % (42.0-52.0); HEMOGLOBIN 13.4 g/dL (14.0-18.0); IMM GRAN# 0.03 X1000 (0.0-0.04); IMM GRAN% 0.3 % (0.0-0.5); LYMPH# 1.18 X1000 (1.2-3.4); LYMPH% 10.1 % (20.5-51.1); MCH 32.4 PG (27-31); MCHC 35.4 g/dL (33-37); MCV 91.3 FL (81-99); MONO# 1.19 X1000 (0.11-0.59); MONO% 10.2 % (1.7-9.3); MPV 10.6 FL (7.4-10.4); NEUT# 9.22 X1000 (1.4-6.5); NEUT% 78.6 % (42.2-75.2); PLT 208 X1000 (130-400); RBC 4.14 XMIL (4.7-6.1); RDW 12.8 % (11.5-14.5); WBC 11.71 X1000 (4.8-10.8)
[2019-03-11 08:12] LABS: PTT 37.5 Seconds (22.3-41.8)
[2019-03-11 08:15] LABS: INR 1.16; PROTIME 15.8 Seconds (11.0-16.0)
[2019-03-11 08:38] LABS: ESTIMATED GFR > 60
[2019-03-11 09:02] LABS: AGAP 12; BUN 10 mg/dL (8-22); CALCIUM 8.4 mg/dL (8.8-10.2); CHLORIDE 85 mmol/L (98-107); COSMO 244; CREATININE 0.7 mg/dL (0.7-1.2); GLUCOSE 110 mg/dL (70-104); POTASSIUM 4.1 mmol/L (3.5-5.1); SODIUM 121 mmol/L (136-145); TCO2 24 mmol/L (25-35)
[2019-03-11] MEDS: TAMBOCOR PO SCH ×2 (10:25→21:01)
[2019-03-11] MEDS: PRINIVIL PO SCH ×2 (10:27→21:02)
[2019-03-11] MEDS: MUCINEX DM PO SCH ×2 (10:27→21:02)
[2019-03-11] MEDS: VICON-C PO SCH (10:27)
[2019-03-11] MEDS: ROCEPHIN 1 GM in NS 50 ML IV SCH (15:49)
--- NOTE | 2019-03-11 17:59 | PROGRESS NOTE ---
DATE: 03/11/2019 SUBJECTIVE: This morning, patient continued to complain of fatigue. He did, however, note decrease in his blood tinged sputum production. This evening, unfortunately patient states the hemoptysis has returned. He describes this as being similar to yesterday. His shortness of breath remains stable. His energy level remains low. His appetite has decreased. He denies fevers, chills, nausea, vomiting, or chest discomfort at present time. OBJECTIVE: T-max 97.5 degrees, heart rate 57 to 70, respirations 16 to 18, blood pressure 129 to 153 over 70 to 89.General: Well nourished, well developed, no acute distress. Cardiovascular: Regular rate and rhythm. No significant murmurs, rubs, or gallops. Pulmonary: Crackles at bilateral bases. Occasional wheeze. Reasonable air movement. Abdomen: Soft, nontender, nondistended. Positive bowel sounds. Extremities: Moves all extremities well. No significant clubbing, cyanosis, or edema. Dermatologic: Evaluation reveals no evidence of rash. LABORATORY DATA: White blood cell count 11.71, hemoglobin 13.4, hematocrit 37.8, platelet count 208,000. Sodium 121, potassium 4.1, chloride 85, bicarb 24, BUN 10, creatinine 0.7, glucose 110, calcium 8.4, CRP 69.77. ASSESSMENT AND PLAN: 1. Pneumonia-initially, patient's presentation was most consistent with a community-acquired pneumonia. Patient was started on Rocephin, doxycycline, and bronchodilators. Despite this, patient continued to have progression of symptoms. Eliquis has subsequently been held. Clinical picture is most consistent with pulmonary hemorrhage at present time. As described above, his symptoms are reasonably stable. For now, we will continue his current regimen with anticipation with supportive care he will began to demonstrate improvement in the near future. 2. Hemoptysis-this likely is a consequence of pulmonary hemorrhage. We will remain aware. This also could be secondary to pneumonia in the setting of anticoagulation. He previously had been using CBD oil which possibly exacerbated his condition. We will continue to hold Eliquis. We will continue supportive care. 3. Bilateral pleural effusions-patient has been successfully diuresed. Most recent chest x-ray suggested only trace effusions. 4. Profound shortness of breath/hypoxia-we will continue patient on bronchodilators and oxygen per protocol. 5. Hyponatremia-patient's sodium decreased from yesterday. This likely is secondary to a combination of diuresis, decreased sodium intake, and possibly syndrome of inappropriate antidiuretic hormone secretion. We will transition the patient's diet from a cardiac prudent diet to a regular diet with anticipation of increased sodium intake. We will continue to follow serial sodium evaluations. No diuresis was provided today or yesterday. Should patient continued to have progressive hyponatremia, we will consider intervention. 6. Hypertension. Patient's blood pressure is reasonably controlled on his current regimen. 7. Hyperlipidemia-we will continue simvastatin therapy. 8. Paroxysmal atrial fibrillation-the patient is well controlled with flecainide therapy. At this point, the risk of anticoagulation outweighs the benefits. 9. Prophylaxis-patient will be transitioned to [facility] for DVT prophylaxis. 10. Disposition-at this point, patient continues to require fdc care in a hospital setting. We will plan discharge home once appropriate. cc: Maximiliano Morris MD
[2019-03-11] MEDS: ZOCOR PO SCH (21:02)
[2019-03-11] MEDS: NORVASC PO SCH (21:02)
--- NOTE | 2019-03-11 21:07 | PULMONOLOGY PROGRESS NOTE ---
DATE: 03/11/2019 INTERIM HISTORY: Patient reports he had no hemoptysis earlier this morning. He did have some hard coughing this afternoon with return of bloody sputum. He reports his appetite is good but he feels weak . OBJECTIVE: Blood pressure 129/89, heart rate 66, respiratory rate 16, oxygen saturation 97%.HEENT: Pupils are equal and reactive. Oropharynx appears clear. Neck: Is supple. Chest: Reveals crackles in the lung bases. Cardiac: S1-S2. Abdomen: Is soft without hepatosplenomegaly. Extremities: Without edema. LABORATORIES: No new culture data. White blood count 11.7, hemoglobin 13.4, platelet count 208,000. C-reactive protein is elevated at 70. Sodium 121, potassium 4.1, chloride 85, bicarbonate 24, BUN 10, creatinine 0.7. IMPRESSION: An 83-year-old with 1. Acute hypoxemic respiratory failure. 2. Hemoptysis. 3. Bilateral pulmonary infiltrates. 4. Elevated CRP markers. PLAN: 1. Continue to hold Eliquis. 2. Continue bronchial hygiene. 3. Continue broad-spectrum antibiotics. 4. Check GUILLERMO level, anti-GBM, and ANCA levels given elevation in CRP and ongoing minor hemoptysis. cc: MD Maximiliano Minor MD
[2019-03-12] MEDS: DOXYCYCLINE 100 MG in NS 250 ML IV SCH ×2 (01:22→12:22)
[2019-03-12] MEDS: DUONEB (A & A) INH SCH ×4 (03:25→21:11)
[2019-03-12 07:47] LABS: BASO# 0.03 X1000 (0.0-0.2); BASO% 0.3 % (0.0-0.8); EOS# 0.09 X1000 (0.0-0.7); EOS% 0.8 % (0.0-10.0); HEMATOCRIT 39.8 % (42.0-52.0); HEMOGLOBIN 14.1 g/dL (14.0-18.0); IMM GRAN# 0.05 X1000 (0.0-0.04); IMM GRAN% 0.5 % (0.0-0.5); LYMPH# 1.29 X1000 (1.2-3.4); LYMPH% 11.7 % (20.5-51.1); MCHC 35.4 g/dL (33-37); MCV 90.2 FL (81-99); MONO# 1.05 X1000 (0.11-0.59); MONO% 9.5 % (1.7-9.3); MPV 10.3 FL (7.4-10.4); NEUT# 8.53 X1000 (1.4-6.5); NEUT% 77.2 % (42.2-75.2); PLT 243 X1000 (130-400); RBC 4.41 XMIL (4.7-6.1); RDW 12.7 % (11.5-14.5); WBC 11.04 X1000 (4.8-10.8)
[2019-03-12 08:02] LABS: ESTIMATED GFR > 60
[2019-03-12 08:08] LABS: AGAP 11; BUN 9 mg/dL (8-22); CALCIUM 8.5 mg/dL (8.8-10.2); CHLORIDE 85 mmol/L (98-107); COSMO 242; CREATININE 0.7 mg/dL (0.7-1.2); GLUCOSE 121 mg/dL (70-104); POTASSIUM 3.9 mmol/L (3.5-5.1); TCO2 24 mmol/L (25-35)
[2019-03-12 08:41] LABS: SODIUM 120 mmol/L (136-145)
--- NOTE | 2019-03-12 09:35 | Diag Imaging Result Doc PS360 ---
CHEST-2 VIEWS - 03/12/2019 INDICATION: abnormal exam COMPARISON: 03/09/2019 FINDINGS: Stable extensive infiltrates bilaterally left greater than right. These are coarse and interstitial. No new infiltrates. No pneumothorax or large pleural effusion. Stable mild cardiomegaly. IMPRESSION: No change from prior. Electronically signed by Hua Herring 03/12/2019 9:33 AM
[2019-03-12] MEDS ORDERED: SAMSCA PO ONE (10:01)
[2019-03-12] MEDS ORDERED: SODIUM BICARBONATE PO ONE (10:03)
[2019-03-12] MEDS: VICON-C PO SCH (10:04)
[2019-03-12] MEDS: PRINIVIL PO SCH ×2 (10:05→22:15)
[2019-03-12] MEDS: MUCINEX DM PO SCH ×2 (10:05→22:16)
[2019-03-12] MEDS: TAMBOCOR PO SCH ×2 (10:05→22:16)
--- NOTE | 2019-03-12 10:56 | PROGRESS NOTE ---
DATE: 03/12/2019 SUBJECTIVE: I reviewed his physician's notes and medical history. The patient was quite forthcoming with information and even reviewed the severe pneumonia he had at age 18 at [place]. The patient continues to have grossly bloody sputum. Yesterday it seemed to have slowed down a little bit, but now it is about at the same pace as previously. He has been off of his Eliquis since Thursday. OBJECTIVE: Vital Signs: 97.7, 70, 23, 132/73, 97% saturated on 4 L nasal cannula. Lungs: The patient has crackles in both bases. He has good air movement. No wheezing. He is slightly tachypneic after coming back from the bathroom. Cardiovascular: Regular. It seems to be reasonably well rate controlled. Extremities: Show 1 to 2+ pitting edema of the lower extremities, particularly in the dependent areas. LABORATORY DATA: White cell count 11.0, hematocrit 39.8. Sodium is down to 122. CO2 24, BUN 9, creatinine 0.7. ASSESSMENT AND PLAN: 1. The patient continues on antibiotics for a presumed initial insult of pneumonia. I agree with Dr. Morris' assessment. This appears to be more of a pulmonary hemorrhage at the present time. We are going to continue his medical regimen and monitor progress. 2. The patient remains off of anticoagulation for his atrial fibrillation. 3. The patient has had bilateral pleural effusions, which have been documented as successfully diuresed. He continues to have moderate signs and symptoms of fluid overload as well as hyponatremia. We are going to try and correct his sodium 1st and then possibly give him a dose or 2 of Lasix if we can get him back into an appropriate range. I have asked him to restrict his fluids to 1500 mL a day. 4. I have given the patient a single dose of Samsca to hopefully bring up his sodium. We will recheck this in the morning. 5. Hypertension, stable. 6. Hyperlipidemia. Aware. 7. Paroxysmal atrial fibrillation. The patient is off of anticoagulation right now. He continues on flecainide. 8. The patient has deep venous thrombosis prophylaxis in place. cc: MD Maximiliano Adam MD
[2019-03-12] MEDS: ROCEPHIN 1 GM in NS 50 ML IV SCH (12:22)
[2019-03-12 16:29] LABS: URINE SOURCE CLEAN CATCH
[2019-03-12 16:44] LABS: BILIRUBIN URINE NEGATIVE (NEGATIVE); BLOOD URINE NEGATIVE (NEGATIVE); COLOR YELLOW; GLUCOSE URINE NEGATIVE (NEGATIVE); KETONE URINE TRACE mg/dL (NEGATIVE); LEUKOCYTES URINE NEGATIVE (NEGATIVE); NITRITE URINE NEGATIVE (NEGATIVE); PROTEIN URINE NEGATIVE (NEGATIVE); SP GRAVITY URINE 1.002; TURBIDITY URINE CLEAR (CLEAR); UROBILINOGEN URINE NORMAL (NORMAL)
[2019-03-12 16:46] LABS: UR EPITHELIAL CELLS <10 /HPF (<10); URINE BACTERIA NEGATIVE /HPF; URINE RBC <10 /HPF (<10); URINE WBC <10 /HPF (<10)
[2019-03-12] MEDS ORDERED: LASIX IV ONE (18:28)
--- NOTE | 2019-03-12 20:19 | PULMONOLOGY PROGRESS NOTE ---
DATE: 03/12/2019 SUBJECTIVE: The patient is awake, alert, and conversant. He reports he feels better this afternoon than he did this morning. He had some blood-tinged sputum this morning but it is clear this afternoon. OBJECTIVE: Vital Signs: The patient has been afebrile for the last 24 hours. Blood pressure 148/68, heart rate 64, respiratory rate 15, oxygen saturation 97% on 4 L per nasal cannula. HEENT: Pupils are equal and reactive. Oropharynx is clear. Neck: Is supple. Chest: Reveals crackles bilaterally. Cardiac: S1, S2. Abdomen: Is soft. Extremities: Without edema. LABORATORIES: White blood count 11.0, hemoglobin 14.1, platelet count 243,000. Sodium 120, potassium 3.9, chloride 85, bicarbonate 24, BUN 9, creatinine 0.7. No new microbiology data. IMPRESSION: 83-year-old with 1. Acute hypoxemic respiratory failure. 2. Hemoptysis while on Plavix. 3. Bilateral pulmonary infiltrates. 4. Hyponatremia. 5. Elevated C-reactive protein marker. PLAN: 1. Continue to hold Eliquis. 2. Continue bronchial hygiene. 3. Continue broad-spectrum antibiotics. 4. Agree with management of hyponatremia as outlined by Dr. Dinero. 5. Await GUILLERMO level, anti-GBM level, ANCA levels given ongoing hemoptysis. cc: MD Maximiliano Minor MD
[2019-03-12] MEDS: NORVASC PO SCH (22:15)
[2019-03-12] MEDS: ZOCOR PO SCH (22:16)
[2019-03-13] MEDS: DOXYCYCLINE 100 MG in NS 250 ML IV SCH ×2 (00:29→13:23)
[2019-03-13] MEDS: DUONEB (A & A) INH SCH ×6 (03:21→23:35)
[2019-03-13 07:40] LABS: BASO# 0.03 X1000 (0.0-0.2); BASO% 0.3 % (0.0-0.8); EOS# 0.05 X1000 (0.0-0.7); EOS% 0.6 % (0.0-10.0); HEMATOCRIT 39.3 % (42.0-52.0); HEMOGLOBIN 13.9 g/dL (14.0-18.0); IMM GRAN# 0.03 X1000 (0.0-0.04); IMM GRAN% 0.3 % (0.0-0.5); LYMPH# 1.08 X1000 (1.2-3.4); LYMPH% 12.1 % (20.5-51.1); MCH 32.1 PG (27-31); MCHC 35.4 g/dL (33-37); MCV 90.8 FL (81-99); MONO# 1.05 X1000 (0.11-0.59); MONO% 11.7 % (1.7-9.3); MPV 10.1 FL (7.4-10.4); NEUT# 6.71 X1000 (1.4-6.5); PLT 236 X1000 (130-400); RBC 4.33 XMIL (4.7-6.1); RDW 12.8 % (11.5-14.5); WBC 8.95 X1000 (4.8-10.8)
[2019-03-13 08:00] LABS: AGAP 11; BUN 9 mg/dL (8-22); CALCIUM 8.4 mg/dL (8.8-10.2); CHLORIDE 94 mmol/L (98-107); COSMO 266; CREATININE 0.7 mg/dL (0.7-1.2); ESTIMATED GFR > 60; GLUCOSE 114 mg/dL (70-104); SODIUM 133 mmol/L (136-145); TCO2 28 mmol/L (25-35)
[2019-03-13] MEDS ORDERED: KLOR-CON PO ONE (08:27)
[2019-03-13] MEDS ORDERED: LASIX IV ONE (08:27)
[2019-03-13] MEDS: TAMBOCOR PO SCH ×2 (08:53→22:11)
[2019-03-13] MEDS: PRINIVIL PO SCH ×2 (08:53→22:14)
[2019-03-13] MEDS: VICON-C PO SCH (08:53)
[2019-03-13] MEDS: MUCINEX DM PO SCH ×2 (08:55→22:14)
--- NOTE | 2019-03-13 09:06 | PROGRESS NOTE ---
DATE: 03/13/2019 SUBJECTIVE: The patient complained because I had reduced the number of breathing treatments down to 4 times a day from every 4 hours. He requested that we reinstitute the every 4-hour breathing treatments. He continues to cough up thick, yellowish mucus, which is more than blood tinged, but not grossly hemorrhagic. He is not necessarily coughing up clots, but just bloody-looking mucus. He denies any nasal drainage or bloody output from blowing his nose or such. Dr. Rosas gave him some Lasix last night and he urinated quite a bit. He feels like his legs are a little less edematous than previously. OBJECTIVE: Neck: No JVD. Lungs: The patient's lungs are generally clear. He is not wheezing. He has poor air movement, especially in the bases when listening in the posterior segments. Extremities: There is 1+ pitting edema in the dependent areas in his lower extremities. Neuropsychiatric: The patient is alert, oriented, conversive and appropriate. LABORATORY: White cell count 8.9, hematocrit 39.3. Sodium is 133, BUN 9, creatinine 0.7. ASSESSMENT AND PLAN: 1. The patient continues on antibiotics. After reviewing some of the stuff he coughed up, I would agree with continuing antibiotics. Although he certainly has some form of pulmonary hemorrhage, the thick, yellow phlegm that he is coughing up could also very easily represent infection, which may be why it has been so long in resolving itself. 2. The patient remains off of anticoagulation for his atrial fibrillation. 3. The patient remains edematous. He was given Lasix yesterday and will be given more today. He was also given Samsca yesterday and put on a slight fluid restriction. His sodium went from 120 to 133. 4. Hypertension, stable. 5. Hyperlipidemia, stable. 6. Atrial fibrillation. Off of anticoagulation. He continues on flecainide. 7. Deep venous thrombosis prophylaxis is in place in the form of mechanical means. cc: MD Maximiliano Adam MD
[2019-03-13] MEDS: ROCEPHIN 1 GM in NS 50 ML IV SCH (13:23)
--- NOTE | 2019-03-13 20:53 | PULMONOLOGY PROGRESS NOTE ---
DATE: 03/13/2019 SUBJECTIVE: The patient is awake, alert, and conversant. He reports 1 to 2 episodes of blood- tinged sputum this morning, but has been clear this afternoon. OBJECTIVE: Vital Signs: The patient has been afebrile for the last 24 hours. Blood pressure 123/59, heart rate 64, respiratory rate 18, oxygen saturation 97% on 4 L per nasal cannula. HEENT: Pupils are equal and reactive. Oropharynx appears clear. Neck: Supple. Chest: Reveals crackles bilaterally. Cardiac: S1, S2. Abdomen: Soft. Extremities: Without edema. LABORATORIES: White blood count 8.95, hemoglobin 13.9, platelet count 236,000. Sodium 133, potassium 4, chloride 94, bicarbonate 28, BUN 9, creatinine 0.7. IMPRESSION: An 83-year-old with: 1. Acute hypoxemic respiratory failure. 2. Hemoptysis while on Eliquis. 3. Bilateral pulmonary infiltrates. 4. Hyponatremia. 5. Elevated C-reactive protein. DISCUSSION: An 83-year-old with problems as outlined above. He continues to have occasional cough and blood-tinged sputum, but the overall quantity has continued to decrease. RECOMMENDATIONS: 1. Continue to hold Eliquis. 2. Continue bronchial hygiene. 3. Continue broad-spectrum antibiotics. 4. Follow up chest x-ray tomorrow. 5. Await final workup for vasculitis. cc: MD Maximiliano Minor MD
[2019-03-13] MEDS: ZOCOR PO SCH (22:14)
[2019-03-13] MEDS: NORVASC PO SCH (22:15)
[2019-03-14] MEDS: DOXYCYCLINE 100 MG in NS 250 ML IV SCH ×2 (01:50→12:28)
[2019-03-14] MEDS: DUONEB (A & A) INH SCH ×6 (03:25→23:15)
--- NOTE | 2019-03-14 07:56 | Diag Imaging Result Doc PS360 ---
EXAM: CHEST-2 VIEWS HISTORY: abnormal exam TECHNIQUE: Chest two views COMPARISON: 03/12/2019 FINDINGS: There are increased interstitial markings throughout the left lung. Worsening interstitial markings in the mid right lung. Some of the markings likely represent fibrosis although there are likely underlying infiltrates as well. Questionable trace pleural fluid. The heart remains mildly prominent. IMPRESSION: Mild interval worsening. Electronically signed by Emanuel Sarabia 03/14/2019 7:54 AM
[2019-03-14] MEDS: TAMBOCOR PO SCH ×2 (08:19→20:48)
[2019-03-14] MEDS: MUCINEX DM PO SCH ×2 (08:19→20:48)
[2019-03-14] MEDS: PRINIVIL PO SCH ×2 (08:20→20:48)
[2019-03-14] MEDS: VICON-C PO SCH (08:20)
[2019-03-14] MEDS: ROCEPHIN 1 GM in NS 50 ML IV SCH (11:04)
[2019-03-14 11:25] LABS: ANTINEUTROPHIL CYTOPLASMIC AB SEE COMMENTS
[2019-03-14] MEDS: NORVASC PO SCH (20:48)
[2019-03-14] MEDS: ZOCOR PO SCH (20:50)
--- NOTE | 2019-03-14 21:25 | PROGRESS NOTE ---
DATE: 03/14/2019 SUBJECTIVE: The patient's chart was reviewed. Events of the weekend were noted. In summary, the patient continues to have shortness of breath and hemoptysis. Hemoptysis, however, has improved slightly. He denies current fevers, chills, nausea, vomiting, and wheezing. Over the weekend, sodium was addressed with a single dose of Samsca. Sodium has improved considerably. OBJECTIVE: T-max 97.8 degrees, heart rate 62 to 70, respirations 16 to 20, blood pressure 123 to 139 over 60 to 80.General: Well nourished, well developed, in no acute distress. Cardiovascular: Regular rate and rhythm. No significant murmurs, rubs, or gallops. Pulmonary: Clear to auscultation bilaterally. Abdomen: Soft, nontender, nondistended. Positive bowel sounds. Extremities: Moves all extremities well. No significant clubbing, cyanosis, or edema. Dermatologic: Evaluation reveals no evidence of rash. LABORATORY DATA: None. ASSESSMENT AND PLAN: 1. Pneumonia-patient is currently being treated with Rocephin, doxycycline, and bronchodilators. At this point, it is difficult to determine if his pulmonary infiltrate is blood or pneumonia. For now, we will continue treating for both. 2. Hemoptysis-this likely is a consequence of pulmonary hemorrhage. His anticoagulation has been held. We will continue treatment of a possible underlying pneumonia as above. 3. Bilateral pleural effusion-patient has been successfully diuresed. We will remain aware. 4. Profound shortness of breath/hypoxia-we will continue patient on bronchodilators and oxygen per protocol. 5. Hyponatremia-as above, patient was treated with Samsca with improvement. We will recheck levels in the morning. 6. Hypertension-the patient's blood pressure is reasonably controlled on his current regimen. 7. Hyperlipidemia-we will continue simvastatin therapy. 8. Paroxysmal atrial fibrillation-patient is well controlled on flecainide. At this point, he is not a candidate for anticoagulation. 9. Disposition-at this point, patient continues to require alf care in a hospital setting. We will plan discharge home once appropriate. cc: Maximiliano Morris MD
--- NOTE | 2019-03-14 22:18 | PULMONOLOGY PROGRESS NOTE ---
DATE: 03/14/2019 SUBJECTIVE: The patient is awake, alert, and conversant. He reports minimal sputum production. He reports he has been ambulating in the hallway. His oxygen saturations appear to be trending upward, and he was 99% this evening on 4 L per nasal cannula. OBJECTIVE: Vital signs: Blood pressure 139/80, heart rate 70, respiratory rate. He has been afebrile for the last 24 hours. Oxygen saturation 99%. HEENT: Pupils are equal and reactive. Oropharynx is clear. Neck: Supple. Chest: Reveals crackles bilaterally. Cardiac exam: S1, S2. Abdomen: Soft. Extremities: Without edema or change. IMAGING AND LABORATORIES: Chest x-ray reveals bilateral infiltrates without significant change. GUILLERMO level was negative. ANCA level was negative. Antiglomerular membrane antibodies are negative. Apixaban level was 160 ng/mL. Standard peak dose for a 5 mg tablet is in a range from 79 to 129. His dose was a trough level. Repeat sputum culture reveals 2+ gram-positive cocci and 1+ white blood cells. IMPRESSION: An 83-year-old with: 1. Acute hypoxemic respiratory failure. 2. Hemoptysis with trough level of Eliquis greater than predicted peak level. 3. Bilateral pulmonary infiltrates. 4. Elevated C-reactive protein. 5. Negative evaluation for other etiologies for hemoptysis. RECOMMENDATIONS: 1. Continue to hold Eliquis. 2. Continue antibiotics and await follow-up sputum cultures. 3. Continue bronchial hygiene. 4. Consider course of steroids if he does not continue to improve. cc: MD Maximiliano Minor MD
[2019-03-15] MEDS: DUONEB (A & A) INH SCH ×6 (03:20→23:30)
[2019-03-15 07:25] LABS: HEMOGLOBIN 13.7 g/dL (14.0-18.0); IMM GRAN# 0.03 X1000 (0.0-0.04); IMM GRAN% 0.3 % (0.0-0.5); LYMPH% 12.8 % (20.5-51.1); MCH 32.3 PG (27-31); MCHC 34.3 g/dL (33-37); MCV 94.3 FL (81-99); MONO# 1.03 X1000 (0.11-0.59); MONO% 10.1 % (1.7-9.3); NEUT# 7.53 X1000 (1.4-6.5); NEUT% 73.8 % (42.2-75.2); PLT 229 X1000 (130-400); RBC 4.24 XMIL (4.7-6.1); RDW 13.3 % (11.5-14.5); WBC 10.19 X1000 (4.8-10.8)
[2019-03-15 08:10] LABS: AGAP 2; ALBUMIN 2.9 g/dL (3.5-5.0); ALKALINE PHOSPHATASE 60 U/L (32-122); BUN 12 mg/dL (8-22); CALCIUM 8.5 mg/dL (8.8-10.2); CHLORIDE 92 mmol/L (98-107); COSMO 263; CREATININE 0.8 mg/dL (0.7-1.2); ESTIMATED GFR > 60; GLUCOSE 112 mg/dL (70-104); GOT 26 U/L (10-34); GPT 21 U/L (10-44); POTASSIUM 4.2 mmol/L (3.5-5.1); SODIUM 131 mmol/L (136-145); TCO2 37 mmol/L (25-35); TOTAL BILIRUBIN 0.41 mg/dL (0.20-1.00); TOTAL PROTEIN 5.9 g/dL (6.3-8.3)
[2019-03-15] MEDS: VICON-C PO SCH (09:40)
[2019-03-15] MEDS: PRINIVIL PO SCH ×2 (09:40→21:21)
[2019-03-15] MEDS: TAMBOCOR PO SCH ×2 (09:40→21:21)
[2019-03-15] MEDS: DOXYCYCLINE PO SCH ×2 (09:41→21:21)
[2019-03-15] MEDS: MUCINEX DM PO SCH ×2 (09:41→21:21)
[2019-03-15] MEDS: ROCEPHIN 1 GM in NS 50 ML IV SCH (11:14)
--- NOTE | 2019-03-15 20:10 | PROGRESS NOTE ---
DATE: 03/15/2019 SUBJECTIVE: This morning, patient was sitting upright in his bed. He noted largely unchanged condition. At rest, he denied significant shortness of breath. With exertion, he noted persistent shortness of breath. His cough continues to be productive of bloody sputum, although decreased. He denies fevers, chills, nausea, vomiting, or wheezing. His p.o. intake is improving. This evening, patient was sitting upright in the chair. He walked with physical therapy. He noted some improvement in his overall dyspnea with exertion. OBJECTIVE: T-max 98.2, heart rate 62 to 70, respirations 18 to 20, blood pressure 126 to 139 over 63 to 80.General: Well nourished, well developed, no acute distress. Cardiovascular: Regular rate and rhythm. No significant murmurs, rubs, or gallops. Pulmonary: Minimal crackles at bilateral bases. Adequate air movement. Abdomen: Soft, nontender, nondistended. Positive bowel sounds. Extremities: Moves all extremities well. No significant clubbing or cyanosis, 1+ lower extremity edema bilaterally. Dermatologic: Evaluation reveals no evidence of rash. LABORATORY DATA: White blood cell count 10.19, hemoglobin 13.7, hematocrit 40.0, platelet count 229,000. Sodium 131, potassium 4.2, chloride 92, bicarb 37, BUN 12, creatinine 0.8, glucose 112, calcium 8.5, total bilirubin 0.41, total protein 5.9, albumin 2.9, alkaline phosphatase 60, AST 26, ALT 21. ASSESSMENT AND PLAN: 1. Pneumonia-the patient is currently being treated with Rocephin, doxycycline, and pulmonary toilet. We will continue treatment for now. Symptoms are currently stable. 2. Hemoptysis-this likely is a consequence of pulmonary hemorrhage. We will continue treatment for his underlying pneumonia. We will continue to hold Eliquis therapy. 3. Bilateral pleural effusions-patient has been successfully diuresed. On examination, patient does have lower extremity edema today. We will consider repeat diuresis in the a.m. 4. Profound shortness of breath/hypoxia-we will continue patient on bronchodilators and oxygen per protocol. Clinically, patient has demonstrated mild improvement from yesterday. 5. Hyponatremia-the patient was treated with Samsca with improvement. Sodium level today is 131. We will need to monitor this closely with further diuresis. 6. Hypertension. Patient's blood pressure is reasonably controlled on his current regimen. 7. Hyperlipidemia-we will continue patient on simvastatin therapy. 8. Paroxysmal atrial fibrillation-patient is well controlled with flecainide therapy. On examination, he remains in a sinus-generated rhythm. 9. Disposition-at this point, patient continues to require long term care in a hospital setting. We will plan discharge home once appropriate. cc: Maximiliano Morris MD
--- NOTE | 2019-03-15 20:48 | PULMONOLOGY PROGRESS NOTE ---
DATE: 03/15/2019 SUBJECTIVE: The patient is awake and alert. He reports he has been walking in the hallway while on oxygen. He has slight decrease in oxygen saturation to 88% during ambulation. He otherwise reports he is regaining his strength. His sputum production has markedly diminished. OBJECTIVE: Vital Signs: The patient has been afebrile for the last 24 hours. Blood pressure 134/63, heart rate 66, oxygen saturation 97% on 4 L per nasal cannula. HEENT: Pupils are equal and reactive. Oropharynx appears clear. Neck: Is supple. Chest: Reveals good air entry with crackles in both lung bases. Cardiac: S1, S2. Abdomen: Soft without hepatosplenomegaly. Extremities: Reveal mild peripheral cyanosis. IMPRESSION: An 83-year-old with 1. Acute hypoxemic respiratory failure. 2. Hemoptysis while on Eliquis. 3. Elevated C-reactive protein, with remaining workup for connective tissue disease and vasculitides negative. RECOMMENDATIONS: 1. Continue to hold Eliquis. 2. Await final report on sputum cultures which currently is reading as normal anusha. 3. Followup chest x-ray tomorrow morning. cc: MD Maximiliano Minor MD
[2019-03-15] MEDS: ZOCOR PO SCH (21:21)
[2019-03-15] MEDS: NORVASC PO SCH (21:21)
[2019-03-16] MEDS: DUONEB (A & A) INH SCH ×6 (03:30→22:56)
--- NOTE | 2019-03-16 07:39 | Diag Imaging Result Doc PS360 ---
EXAM: CHEST-2 VIEWS HISTORY: abnormal exam TECHNIQUE: Chest two views COMPARISON: 03/14/2019 FINDINGS: The lungs are well expanded. There are diffuse bilateral infiltrates. The dense infiltrates in the left lung are similar to the prior exam. Infiltrates in the upper right lung are more prominent. Heart is mildly enlarged. No pleural effusions. IMPRESSION: Mild interval worsening. Electronically signed by Emanuel Sarabia 03/16/2019 7:36 AM
[2019-03-16] MEDS: DOXYCYCLINE PO SCH ×2 (08:25→21:09)
[2019-03-16] MEDS: VICON-C PO SCH (08:25)
[2019-03-16] MEDS: TAMBOCOR PO SCH ×2 (08:26→21:09)
[2019-03-16] MEDS: MUCINEX DM PO SCH ×2 (08:26→21:09)
[2019-03-16] MEDS: PRINIVIL PO SCH ×2 (08:26→21:09)
[2019-03-16] MEDS ORDERED: LASIX IV ONE (09:42)
[2019-03-16] MEDS: ROCEPHIN 1 GM in NS 50 ML IV SCH (11:08)
--- NOTE | 2019-03-16 19:43 | PROGRESS NOTE ---
DATE: 03/16/2019 SUBJECTIVE: This morning the patient continued to complain of similar symptoms including cough, congestion and shortness of breath. He continues to have blood-tinged sputum production. Through the course of the day, the patient worked with physical therapy. His energy level is slowly improving. His dyspnea remains present. He denies fevers, chills, nausea, vomiting or chest discomfort. OBJECTIVE: T-max 97.3 degrees, heart rate 62 to 71, respirations 16 to 18. Blood pressure 110 to 148 over 66 to 91. General: Well nourished, well developed, in no acute distress. Cardiovascular: Regular rate and rhythm. No significant murmurs, rubs or gallops. Pulmonary: Crackles at bilateral bases. Abdomen soft, nontender, nondistended. Positive bowel sounds. Extremities: Moves all extremities well. No significant clubbing, cyanosis or edema. Dermatologic evaluation reveals no evidence of rash. LABORATORY DATA: None. ASSESSMENT AND PLAN: 1. Pneumonia: The patient is clinically stable with Rocephin, doxycycline and pulmonary toilet. Sputum cultures x2 have returned with normal anusha. We will continue current regimen while treating hemoptysis as described below. 2. Hemoptysis: This likely is a consequence of pulmonary hemorrhage. Differential diagnosis includes pneumonia, either viral or bacterial; supratherapeutic anticoagulation; interaction of cannabidiol with Eliquis. The patient's Eliquis has been held. His clinical condition remains stable. We will continue oxygen per protocol. 3. Bilateral pleural effusions: Chest x-ray did not demonstrate significant effusion on examination today. We will remain aware. 4. Profound shortness of breath/hypoxia: This likely is a consequence of pulmonary hemorrhage. We will continue bronchodilators and oxygen per protocol. 5. Hyponatremia: The patient's sodium yesterday was 131. We will monitor the patient's sodium, especially with diuresis. 6. Hypertension: The patient's blood pressure is reasonably controlled on his current regimen. 7. Hyperlipidemia: We will continue simvastatin therapy. 8. Paroxysmal atrial fibrillation: The patient is well controlled with flecainide therapy. He remains in a sinus-generated rhythm. 9. Lower extremity edema: We will diurese today with Lasix therapy. 10. Disposition: At this point the patient continues to require custodial care in a hospital setting. We will plan discharge home once appropriate. cc: Maximiliano Morris MD
[2019-03-16] MEDS: NORVASC PO SCH (21:09)
[2019-03-16] MEDS: ZOCOR PO SCH (21:09)
[2019-03-17] MEDS: DUONEB (A & A) INH SCH ×6 (03:10→23:37)
[2019-03-17 07:44] LABS: BASO# 0.08 X1000 (0.0-0.2); BASO% 0.9 % (0.0-0.8); EOS# 0.18 X1000 (0.0-0.7); EOS% 1.9 % (0.0-10.0); HEMATOCRIT 40.6 % (42.0-52.0); IMM GRAN# 0.03 X1000 (0.0-0.04); IMM GRAN% 0.3 % (0.0-0.5); LYMPH# 1.18 X1000 (1.2-3.4); LYMPH% 12.6 % (20.5-51.1); MCH 32.3 PG (27-31); MCHC 34.5 g/dL (33-37); MCV 93.8 FL (81-99); MONO# 0.96 X1000 (0.11-0.59); MONO% 10.3 % (1.7-9.3); NEUT# 6.93 X1000 (1.4-6.5); PLT 192 X1000 (130-400); RBC 4.33 XMIL (4.7-6.1); RDW 13.3 % (11.5-14.5); WBC 9.36 X1000 (4.8-10.8)
[2019-03-17 08:00] LABS: AGAP 9; BUN 16 mg/dL (8-22); CALCIUM 8.5 mg/dL (8.8-10.2); CHLORIDE 93 mmol/L (98-107); COSMO 268; CREATININE 0.8 mg/dL (0.7-1.2); ESTIMATED GFR > 60; GLUCOSE 115 mg/dL (70-104); POTASSIUM 4.5 mmol/L (3.5-5.1); SODIUM 133 mmol/L (136-145); TCO2 31 mmol/L (25-35)
[2019-03-17] MEDS: DOXYCYCLINE PO SCH ×2 (09:35→20:17)
[2019-03-17] MEDS: TAMBOCOR PO SCH ×2 (09:36→20:17)
[2019-03-17] MEDS: VICON-C PO SCH (09:36)
[2019-03-17] MEDS: PRINIVIL PO SCH ×2 (09:36→20:17)
[2019-03-17] MEDS: MUCINEX DM PO SCH ×2 (09:36→20:17)
[2019-03-17] MEDS: ROCEPHIN 1 GM in NS 50 ML IV SCH (14:00)
[2019-03-17] MEDS ORDERED: LASIX IV ONE (18:49)
[2019-03-17] MEDS: NORVASC PO SCH (20:17)
[2019-03-17] MEDS: ZOCOR PO SCH (20:17)
--- NOTE | 2019-03-17 20:35 | PROGRESS NOTE ---
DATE: 03/17/2019 SUBJECTIVE: This morning, the patient noted stability of his symptoms. He continues to have cough productive of a blood tinged sputum. He continues to require oxygen to maintain adequate saturations. His energy level remains low. He continues to have dyspnea on exertion. Throughout the day, patient did reasonably well. This evening, patient states his condition is largely unchanged. He denies fevers, chills, nausea, vomiting, or chest discomfort. OBJECTIVE: Vital Signs: T-max 98.6 degrees, heart rate 60 to 67, respirations 18 to 20, blood pressure 116 to 152 over 66 to 97. General: Well nourished, well developed, no acute distress. Cardiovascular: Regular rate and rhythm. No significant murmurs, rubs, or gallops. Pulmonary: Crackles at bilateral bases. Abdomen: Soft, nontender, nondistended. Positive bowel sounds. Extremities: Moves all extremities well. No significant clubbing or cyanosis. 2+ lower extremity edema bilaterally. Dermatologic: Evaluation reveals no evidence of rash. LABORATORY DATA: White blood cell count 9.36, hemoglobin 14.0, hematocrit 40.6, platelet count 192,000. Sodium 133, potassium 4.5, chloride 93, bicarbonate 31, BUN 16, creatinine 0.8, glucose 115, calcium 8.5. ASSESSMENT AND PLAN: 1. Pneumonia: Clinically, patient's condition is stable on Rocephin, doxycycline, and bronchodilators. We will continue current regimen as this likely contributed to his underlying hemoptysis as described below. 2. Hemoptysis: This likely is a consequence of pulmonary hemorrhage. Differential diagnosis includes hemorrhage associated with a viral or bacterial infection, and medication interaction with Eliquis. Patient's condition is very slowly improving. He continues to have blood tinged sputum production. We will continue supportive care. His Eliquis has been held. 3. Bilateral pleural effusions: The patient will be diuresed again this evening. Per most recent chest x-ray, he had demonstrated improvement. 4. Profound shortness of breath/hypoxia: We will continue patient on oxygen per protocol. He likely will require this at home. 5. Hyponatremia: Patient's sodium is acceptable at 133. We will remain aware. 6. Hypertension: The patient's blood pressure is reasonably controlled on his current regimen. 7. Hyperlipidemia: We will continue patient on simvastatin therapy. 8. Paroxysmal atrial fibrillation: Patient remains in a sinus-generated rhythm on flecainide therapy. He is not a candidate for anticoagulation at present time. 9. Lower extremity edema: We will provide a dose of Lasix this evening. 10. Disposition: At this point, patient continues to require nursing home care in a hospital setting. We will plan discharge home once appropriate. cc: Maximiliano Morris MD
--- NOTE | 2019-03-17 22:27 | PULMONOLOGY PROGRESS NOTE ---
DATE: 03/17/2019 SUBJECTIVE: The patient is awake, alert and conversant. He has been ambulating short distances in the hallway. He reports some minimal blood-tinged sputum this morning but none in the afternoon. OBJECTIVE: Blood pressure 116/66, heart rate 98.6, oxygen saturation 95% on 3 L per nasal cannula. HEENT: Pupils are equal and reactive. Oropharynx appears clear. Neck is supple. Chest reveals faint crackles in the lung bases. Cardiac exam: S1, S2. Abdomen is soft. Extremities reveal trace edema. IMPRESSION: An 83-year-old with: 1. Acute hypoxemic respiratory failure. 2. Significant hemoptysis while on Eliquis. His Eliquis has been discontinued for greater than a week, and his hemoptysis has markedly diminished but he continues to have occasional blood- tinged sputum. 3. Vasculitic/rheumatologic workup for causes of hemoptysis. 4. Elevation in C-reactive protein. RECOMMENDATIONS: 1. Continue to hold Eliquis. 2. Followup C-reactive protein level tomorrow. Would consider a course of steroids if his C- reactive protein remains significantly elevated. 3. Followup chest x-ray tomorrow. 4. Wean oxygen as tolerated. 5. If the patient continues to improve, would consider discharging tomorrow, but he may require admission through the weekend. cc: MD Maximiliano Minor MD
[2019-03-18] MEDS: DUONEB (A & A) INH SCH ×6 (03:15→23:34)
[2019-03-18 07:38] LABS: BASO# 0.07 X1000 (0.0-0.2); BASO% 0.9 % (0.0-0.8); EOS# 0.15 X1000 (0.0-0.7); EOS% 1.8 % (0.0-10.0); HEMATOCRIT 40.5 % (42.0-52.0); IMM GRAN# 0.03 X1000 (0.0-0.04); IMM GRAN% 0.4 % (0.0-0.5); LYMPH# 1.21 X1000 (1.2-3.4); LYMPH% 14.8 % (20.5-51.1); MCH 32.1 PG (27-31); MCHC 34.6 g/dL (33-37); MCV 92.9 FL (81-99); MONO# 0.81 X1000 (0.11-0.59); MONO% 9.9 % (1.7-9.3); MPV 10.2 FL (7.4-10.4); NEUT# 5.88 X1000 (1.4-6.5); NEUT% 72.2 % (42.2-75.2); PLT 187 X1000 (130-400); RBC 4.36 XMIL (4.7-6.1); RDW 13.1 % (11.5-14.5); WBC 8.15 X1000 (4.8-10.8)
--- NOTE | 2019-03-18 07:59 | Diag Imaging Result Doc PS360 ---
CHEST-2 VIEWS - 03/18/2019 INDICATION: abnormal exam COMPARISON: 03/16/2019 FINDINGS: Stable advanced COPD. There is been slight decrease in interstitial infiltrate throughout the left lung. There are persistent coarse peripheral interstitial infiltrates bilaterally. Heart size remains borderline. No pneumothorax or pleural effusion. IMPRESSION: Slight improvement in interstitial infiltrate throughout the left lung. Electronically signed by Hua Herring 03/18/2019 7:56 AM
[2019-03-18 08:08] LABS: AGAP 7; ALKALINE PHOSPHATASE 59 U/L (32-122); BUN 15 mg/dL (8-22); CALCIUM 8.2 mg/dL (8.8-10.2); CHLORIDE 90 mmol/L (98-107); COSMO 264; CREATININE 0.8 mg/dL (0.7-1.2); ESTIMATED GFR > 60; GLUCOSE 108 mg/dL (70-104); GOT 27 U/L (10-34); GPT 18 U/L (10-44); POTASSIUM 4.1 mmol/L (3.5-5.1); SODIUM 131 mmol/L (136-145); TCO2 34 mmol/L (25-35); TOTAL BILIRUBIN 0.38 mg/dL (0.20-1.00)
[2019-03-18] MEDS ORDERED: LASIX IV ONE (08:12)
[2019-03-18] MEDS: TAMBOCOR PO SCH ×2 (09:05→20:42)
[2019-03-18] MEDS: MUCINEX DM PO SCH ×2 (09:05→20:43)
[2019-03-18] MEDS: PRINIVIL PO SCH ×2 (09:05→20:43)
[2019-03-18] MEDS: DOXYCYCLINE PO SCH ×2 (09:06→20:43)
[2019-03-18] MEDS: VICON-C PO SCH (09:11)
[2019-03-18] MEDS: ROCEPHIN 1 GM in NS 50 ML IV SCH (11:43)
[2019-03-18] MEDS ORDERED: SOLU-MEDROL IV ONE (18:59)
--- NOTE | 2019-03-18 20:33 | PROGRESS NOTE ---
DATE: 03/18/2019 SUBJECTIVE: Patient was seen this morning. At that time, he continued to have persistent symptoms including cough, congestion and shortness of breath. Over the course of the day his symptoms remarkably unchanged. He denies fevers, chills, nausea, vomiting, or chest discomfort. His energy level remains low. His p.o. intake is reasonable. OBJECTIVE: T-max 98.6, heart rate 63 to 84, respirations 16 to 20, blood pressure 108 to 137 over 55 to 73.General: Well nourished, well developed, no acute distress. Cardiovascular: Regular rate and rhythm. No significant murmurs, rubs, or gallops. Pulmonary: Crackles at bilateral bases. Adequate air movement. Abdomen: Soft, nontender. Positive bowel sounds. Extremities: Moves all extremities well. No significant clubbing or cyanosis, 2+ lower extremity edema bilaterally. Dermatologic: Evaluation reveals no evidence of rash. LABORATORY DATA: White blood cell count 8.15, hemoglobin 14.0, hematocrit 40.5, platelet count 187,000. Sodium 131, potassium 4.1, chloride 90, bicarb 34, BUN 15, creatinine 0.8, glucose 108, calcium 8.2, total bilirubin 0.3, total protein 6.0, albumin 3.0, alkaline phosphatase 59, AST 27, ALT 18. ASSESSMENT AND PLAN: 1. Pneumonia-clinically, patient's condition remains stable. We will continue Rocephin, doxycycline and bronchodilators. 2. Hemoptysis. This likely is a consequence of pulmonary hemorrhage. CRP today is significantly elevated at 30. We will initiate steroid intervention. We will continue to hold Eliquis therapy. 3. Bilateral pleural effusions-patient was diuresed again today. He tolerated this well. Recent chest x-ray suggested minimal effusions present. 4. Shortness of breath/hypoxia-will continue oxygen per protocol. 5. Hyponatremia-patient's sodium remains stable. 6. Hypertension-blood pressure is reasonably controlled on his current regimen. 7. Hyperlipidemia-we will continue patient on simvastatin therapy. 8. Paroxysmal atrial fibrillation-patient remains in a sinus-generated rhythm on flecainide therapy. 9. Lower extremity edema-as above, we again diuresed today. Swelling is slowly improving. 10. Disposition-at this point, patient continues to require alf care in a hospital setting. We will plan discharge home once appropriate. cc: Maximiliano Morris MD
[2019-03-18] MEDS: ZOCOR PO SCH (20:43)
[2019-03-18] MEDS: NORVASC PO SCH (20:43)
[2019-03-19] MEDS: DUONEB (A & A) INH SCH ×5 (03:40→20:13)
[2019-03-19 08:34] LABS: ESTIMATED GFR > 60
[2019-03-19 08:43] LABS: AGAP 10; BUN 17 mg/dL (8-22); CALCIUM 8.8 mg/dL (8.8-10.2); CHLORIDE 89 mmol/L (98-107); COSMO 260; CREATININE 0.8 mg/dL (0.7-1.2); GLUCOSE 149 mg/dL (70-104); POTASSIUM 4.5 mmol/L (3.5-5.1); SODIUM 127 mmol/L (136-145); TCO2 28 mmol/L (25-35)
[2019-03-19] MEDS: TAMBOCOR PO SCH ×2 (09:19→21:48)
[2019-03-19] MEDS: MUCINEX DM PO SCH ×2 (09:20→21:48)
[2019-03-19] MEDS: PRINIVIL PO SCH ×2 (09:20→21:49)
[2019-03-19] MEDS: DOXYCYCLINE PO SCH ×2 (09:20→21:49)
[2019-03-19] MEDS: VICON-C PO SCH (09:20)
[2019-03-19] MEDS ORDERED: MIRALAX PO ONE (09:58)
--- NOTE | 2019-03-19 11:19 | PROGRESS NOTE ---
DATE: 03/19/2019 SUBJECTIVE: Upon my arrival this morning, patient was sitting upright in bed. The patient states he rested reasonably well overnight. From a pulmonary standpoint, patient states he is slightly improved since starting steroids. He denies fevers, chills, nausea, vomiting, or chest discomfort. His energy level remains low but is slightly improved from yesterday. OBJECTIVE: T-max 98.6 degrees, heart rate 56 to 70, respirations 18 to 20, blood pressure 118 to 133/63 to 73.General: No acute distress. Cardiovascular: Regular rate and rhythm. No significant murmurs, rubs, or gallops. Pulmonary: Minimal crackles at the bases. Adequate air movement. Abdomen: Soft, nontender, and nondistended. Positive bowel sounds. Extremities: Moves all extremities well. No significant clubbing or cyanosis. One to 2+ lower extremity edema bilaterally. Dermatologic: Evaluation reveals no evidence of rash. LABORATORY DATA: Sodium 127, potassium 4.5, chloride 89, bicarb 28, BUN 17, creatinine 0.8, glucose 149 and calcium 8.8. ASSESSMENT AND PLAN: 1. Pneumonia-Clinically, patient's condition is slightly improved from yesterday. We will continue doxycycline, Rocephin, and bronchodilators. We will continue Solu-Medrol as initiated yesterday. 2. Hemoptysis-This likely is a consequence of pulmonary hemorrhage. As described yesterday, CRP was noted to be elevated at 30. Steroid intervention was initiated. Eliquis continues to be held. Overall, symptoms may be slightly improved from yesterday. 3. Bilateral pleural effusions/lower extremity edema-Patient was diuresed yesterday. We will allow a diuretic holiday today. We will encourage patient to elevate legs when sitting. 4. Shortness of breath/hypoxia-We will continue oxygen per protocol. Symptoms are slightly improved from yesterday. 5. Hyponatremia-Sodium dropped slightly to 127, likely secondary to diuretics. We will hold diuresis as described above. We will recheck this in the morning. 6. Hypertension-Blood pressure is reasonably controlled on his current regimen. 7. Hyperlipidemia - We will continue simvastatin therapy. 8. Paroxysmal atrial fibrillation-The patient remains in a sinus-generated rhythm on flecainide therapy. 9. Disposition-At this point, patient continues to require [facility] care in a hospital setting. We will plan discharge home once appropriate. cc: Maximiliano Morris MD
[2019-03-19] MEDS: ROCEPHIN 1 GM in NS 50 ML IV SCH (14:04)
[2019-03-19] MEDS: SOLU-MEDROL IV SCH (14:05)
[2019-03-19] MEDS: NORVASC PO SCH (21:48)
[2019-03-19] MEDS: ZOCOR PO SCH (21:49)
[2019-03-20] MEDS: DUONEB (A & A) INH SCH ×7 (01:08→23:50)
[2019-03-20 07:49] LABS: BASO# 0.01 X1000 (0.0-0.2); BASO% 0.1 % (0.0-0.8); HEMATOCRIT 41.5 % (42.0-52.0); HEMOGLOBIN 14.2 g/dL (14.0-18.0); IMM GRAN# 0.03 X1000 (0.0-0.04); IMM GRAN% 0.3 % (0.0-0.5); LYMPH# 0.82 X1000 (1.2-3.4); MCH 31.8 PG (27-31); MCHC 34.2 g/dL (33-37); MONO# 0.57 X1000 (0.11-0.59); MONO% 6.2 % (1.7-9.3); MPV 10.4 FL (7.4-10.4); NEUT# 7.71 X1000 (1.4-6.5); NEUT% 84.4 % (42.2-75.2); PLT 192 X1000 (130-400); RBC 4.46 XMIL (4.7-6.1); WBC 9.14 X1000 (4.8-10.8)
[2019-03-20 08:10] LABS: AGAP 11; BUN 21 mg/dL (8-22); CALCIUM 9.2 mg/dL (8.8-10.2); CHLORIDE 89 mmol/L (98-107); COSMO 267; CREATININE 0.9 mg/dL (0.7-1.2); ESTIMATED GFR > 60; GLUCOSE 151 mg/dL (70-104); POTASSIUM 5.3 mmol/L (3.5-5.1); SODIUM 130 mmol/L (136-145); TCO2 30 mmol/L (25-35)
[2019-03-20] MEDS: TAMBOCOR PO SCH ×2 (08:56→20:22)
[2019-03-20] MEDS: MUCINEX DM PO SCH ×2 (08:57→20:21)
[2019-03-20] MEDS: DOXYCYCLINE PO SCH ×2 (08:57→20:22)
[2019-03-20] MEDS: PRINIVIL PO SCH ×2 (08:57→20:21)
[2019-03-20] MEDS: VICON-C PO SCH (08:58)
[2019-03-20] MEDS ORDERED: LASIX IV ONE (09:58)
[2019-03-20] MEDS: SOLU-MEDROL IV SCH (12:20)
[2019-03-20] MEDS: ROCEPHIN 1 GM in NS 50 ML IV SCH (12:20)
--- NOTE | 2019-03-20 12:38 | PROGRESS NOTE ---
DATE: 03/20/2019 SUBJECTIVE: The patient is sitting upright in a chair upon my arrival today. The patient states yesterday, unfortunately, was not one of his better days. He notes having an episode of significant dyspnea after going to the restroom. Otherwise, his p.o. intake remains adequate. He has done reasonably well at rest. He denies fevers, chills, nausea, vomiting, or chest discomfort. OBJECTIVE: T-max 98.1 degrees, heart rate 56 to 67 respirations 18 to 22, blood pressure 101- 136/54-73. General: Well-nourished, well-developed, no acute distress. Cardiovascular: Regular rate and rhythm. No significant murmurs, rubs, or gallops. Pulmonary: Crackles at bilateral bases. Adequate air movement. Abdomen: Soft, nontender, nondistended. Positive bowel sounds. Extremities: Moves all extremities well. No significant clubbing or cyanosis. There is 2+ lower extremity edema bilaterally. Dermatologic: Evaluation reveals no evidence of rash. Laboratory Data: White blood cell count 9.14, hemoglobin 14.2, hematocrit 41.5, platelet count is 192,000. Sodium 130, potassium 5.3, chloride 89, bicarb 30, BUN 21, creatinine 0.9, glucose 151. CRP 17.01. ASSESSMENT AND PLAN: 1. Pneumonia-clinically, patient continues to improve. White blood cell count is within normal limits. He is afebrile. We will continue doxycycline, Rocephin, and bronchodilators. 2. Hemoptysis-this likely is a consequence of pulmonary hemorrhage in the setting of anticoagulation and pneumonia. Because of his very slow improvement, steroids were initiated on Thursday. With the addition of steroids, patient has achieved some, although not a drastic improvement. The patient's CRP has decreased in half of over a 2 days' course. 3. Pleural effusion/lower extremity edema-unfortunately, he continues to carry excess fluid. We will diurese again today. 4. Hyperkalemia-this is quite curious. We will diurese as above. We will recheck a potassium level this afternoon. We will decrease patient's lisinopril as described below. 5. Hyponatremia-patient's sodium has increased from 127 to 130. We will remain aware, especially in the setting of intermittent diuresis. 6. Hypertension-patient's blood pressure decreased yesterday. We will decrease his lisinopril to 20 mg twice daily. This will be followed through the day as well. 7. Hyperlipidemia-we will continue patient on simvastatin therapy. 8. Paroxysmal atrial fibrillation-the patient appears to be in a sinus-generated rhythm while flecainide. His anticoagulation has been held. We will remain aware that intermittent rhythm changes also could precipitate his symptoms as described above. 9. Disposition-at this point, patient continues to require [facility] care in a hospital setting. We discussed discharge home versus rehab. With his prolonged course, I feel rehab may be the best option. We will consult career services manager in the morning. cc: Maximiliano Morris MD
[2019-03-20] MEDS: ZOCOR PO SCH (20:21)
[2019-03-20] MEDS: NORVASC PO SCH (20:22)
[2019-03-20 21:47] LABS: ESTIMATED GFR > 60
[2019-03-20 21:48] LABS: AGAP 11; BUN 25 mg/dL (8-22); CALCIUM 8.7 mg/dL (8.8-10.2); CHLORIDE 88 mmol/L (98-107); COSMO 271; CREATININE 0.9 mg/dL (0.7-1.2); GLUCOSE 205 mg/dL (70-104); POTASSIUM 4.7 mmol/L (3.5-5.1); SODIUM 130 mmol/L (136-145); TCO2 31 mmol/L (25-35)
[2019-03-21] MEDS: DUONEB (A & A) INH SCH ×6 (03:30→23:15)
[2019-03-21 08:31] LABS: ESTIMATED GFR > 60
[2019-03-21 08:32] LABS: AGAP 9; BUN 20 mg/dL (8-22); C REACTIVE PROT QUANT 8.73 mg/L (0.00-5.00); CHLORIDE 89 mmol/L (98-107); COSMO 265; CREATININE 0.9 mg/dL (0.7-1.2); GLUCOSE 127 mg/dL (70-104); POTASSIUM 5.1 mmol/L (3.5-5.1); SODIUM 130 mmol/L (136-145); TCO2 32 mmol/L (25-35)
--- NOTE | 2019-03-21 09:31 | Diag Imaging Result Doc PS360 ---
EXAM: CHEST-2 VIEWS HISTORY: hypoxia TECHNIQUE: Chest two views COMPARISON: 03/18/2019 FINDINGS: The lungs are well expanded. There are increased interstitial markings diffusely throughout both lungs. These are similar to the prior exam. The heart is borderline mildly prominent. Trace pleural fluid. IMPRESSION: Stable chest Electronically signed by Emanuel Sarabia 03/21/2019 9:28 AM
[2019-03-21] MEDS: MUCINEX DM PO SCH ×2 (10:04→22:37)
[2019-03-21] MEDS: TAMBOCOR PO SCH ×2 (10:04→22:35)
[2019-03-21] MEDS: DOXYCYCLINE PO SCH ×2 (10:05→22:34)
[2019-03-21] MEDS: PRINIVIL PO SCH ×2 (10:05→22:35)
[2019-03-21] MEDS: VICON-C PO SCH (10:05)
[2019-03-21] MEDS: PREDNISONE PO SCH (10:08)
[2019-03-21] MEDS: ROCEPHIN 1 GM in NS 50 ML IV SCH (12:20)
--- NOTE | 2019-03-21 18:15 | PULMONOLOGY PROGRESS NOTE ---
DATE: 03/21/2019 SUBJECTIVE: The patient is awake, alert, and conversant. He is sitting on the side of the bed eating. He did ambulate around the hospital today. He has occasional blood-tinged sputum. He reports overall his strength has improved. OBJECTIVE: Vital Signs: Blood pressure 141/71, heart rate 62, respiratory rate 20, oxygen saturation 99% on 4 L per nasal cannula. HEENT: Pupils are equal and reactive. Oropharynx is clear. Neck: Supple. Chest: Reveals crackles left greater than right lung. Cardiac: S1-S2. Abdomen: Soft. Extremities: Reveal chronic cyanosis. LABORATORY DATA: Chest x-ray 03/21/2019, is compared by this practitioner to 03/12/2019: There are increased interstitial markings, left greater than right. There has been significant improvement over the last 9 days. Electrolytes: Sodium 130, potassium 5.1, chloride 89, bicarbonate 32, BUN 20, creatinine 0.9. C-reactive protein 8.7. IMPRESSION: 1. An 83-year-old with acute hypoxemic respiratory failure. 2. Hemoptysis while on Eliquis. Hemoptysis did not completely resolve when this was discontinued. 3. Negative workup for vasculitis. 4. Steroid responsive inflammation with sequential decrease in C-reactive protein. RECOMMENDATIONS: 1. Continue current steroid dosing. 2. Wean oxygen as tolerated. 3. Consider rehab stay. 4. We will continue steroids at the time of discharge. 5. Would delay restarting Eliquis for another 7 to 10 days. cc: MD Maximiliano Minor MD
--- NOTE | 2019-03-21 21:21 | PROGRESS NOTE ---
DATE: 03/21/2019 SUBJECTIVE: Upon my arrival this morning, patient was resting in bed. He noted having an episode overnight of significant shortness of breath. This occurred while he was attempting to shower. Patient states with time and resting, his symptoms resolved. Through the course today, patient states he did reasonably well. He denies fevers, chills, nausea, vomiting, or chest discomfort. He has had no further episodes of acute shortness of breath. OBJECTIVE: T-max 97.8 degrees, heart rate 57 to 78, respirations 18 to 20, blood pressure 125 to 141 over 62 to 71.General: Well nourished, well developed, no acute distress. Cardiovascular: Regular rate and rhythm. No significant murmurs, rubs, or gallops. Pulmonary: Minimal crackles at bilateral bases. Adequate air movement. Abdomen: Soft, nontender, nondistended. Positive bowel sounds. Extremities: Moves all extremities well. No significant clubbing, cyanosis, or edema. Dermatologic: Evaluation reveals no evidence of rash. LABORATORY DATA: Sodium 130, potassium 5.1, chloride 89, bicarb 32, BUN 20, creatinine 0.9, glucose 127, calcium 9.0. ASSESSMENT AND PLAN: 1. Pneumonia-patient's condition continues to very slowly improve. We will continue antibiotics and bronchodilators. We will address volume and hemoptysis as described below. 2. Hemoptysis-patient's sputum continues to slowly improve. He does, however, continue to have some blood-tinged production. We will continue to hold anticoagulation. We will continue current dosage of steroids. 3. Pleural effusion/lower extremity edema-the patient was given a diuretic holiday today. We will reassess tomorrow and determine if repeat diuresis is warranted. 4. Hyperkalemia-potassium today is acceptable. We will follow this. 5. Hyponatremia-patient's sodium is stable. We will follow, especially in the setting of diuresis. 6. Hypertension-patient's blood pressure is reasonably controlled on his current regimen. 7. Hyperlipidemia-we will continue simvastatin therapy. 8. Paroxysmal atrial fibrillation-patient remains in a sinus-generated rhythm. Anticoagulation has been held as described above. 9. Disposition-at this point, patient continues to require intermediate care in the hospital setting. We will plan discharge to rehabilitation once appropriate. cc: Maximiliano Morris MD
[2019-03-21] MEDS: ZOCOR PO SCH (22:34)
[2019-03-21] MEDS: NORVASC PO SCH (22:34)
[2019-03-22] MEDS: DUONEB (A & A) INH SCH ×6 (03:15→23:50)
[2019-03-22 07:30] LABS: AGAP 9; BUN 18 mg/dL (8-22); CALCIUM 8.7 mg/dL (8.8-10.2); CHLORIDE 91 mmol/L (98-107); COSMO 267; CREATININE 0.8 mg/dL (0.7-1.2); ESTIMATED GFR > 60; GLUCOSE 112 mg/dL (70-104); POTASSIUM 4.8 mmol/L (3.5-5.1); SODIUM 132 mmol/L (136-145); TCO2 32 mmol/L (25-35)
[2019-03-22] MEDS ORDERED: LASIX IV ONE (08:11)
[2019-03-22] MEDS: MUCINEX DM PO SCH ×2 (09:04→21:54)
[2019-03-22] MEDS: PREDNISONE PO SCH (09:04)
[2019-03-22] MEDS: VICON-C PO SCH (09:04)
[2019-03-22] MEDS: TAMBOCOR PO SCH ×2 (09:04→21:52)
[2019-03-22] MEDS: DOXYCYCLINE PO SCH ×2 (09:04→21:52)
[2019-03-22] MEDS: PRINIVIL PO SCH ×2 (09:05→21:54)
[2019-03-22] MEDS: ROCEPHIN 1 GM in NS 50 ML IV SCH (11:00)
--- NOTE | 2019-03-22 20:34 | PULMONOLOGY PROGRESS NOTE ---
DATE: 03/22/2019 SUBJECTIVE: The patient is awake, alert and conversant. He reports he has not had any hemoptysis today. OBJECTIVE: The patient has been afebrile for the last 24 hours. HEENT: Pupils are equal and reactive. Neck is supple. Chest reveals good air entry bilaterally without wheezing or rhonchi. Cardiac exam: S1, S2. Abdomen is soft, without hepatosplenomegaly. Extremities reveal trace edema. LABORATORY DATA: Sodium 132, potassium 4.8, chloride 101, bicarbonate 32, BUN 18, creatinine 0.8. IMPRESSION: An 83-year-old with: 1. Acute hypoxemic respiratory failure. 2. Hemoptysis, on Eliquis, with ongoing pulmonary infiltrates. 3. Steroid-responsive inflammation. RECOMMENDATIONS: 1. Continue current steroid dosing. 2. Wean oxygen as tolerated. O2 per protocol has been initiated. 3. Anticipate transfer to a rehab stay. 4. Follow up chest x-ray tomorrow morning. cc: MD Maximiliano Minor MD
--- NOTE | 2019-03-22 20:39 | PROGRESS NOTE ---
DATE: 03/22/2019 SUBJECTIVE: This morning, upon my arrival, patient stated he had a reasonable night. The patient was diuresed again this morning secondary to lower extremity edema. An echocardiogram was ordered and performed through the day. Overall, patient states he did reasonably well through the day. His energy level continues to slowly improve. He continues to require oxygen supplementation to maintain adequate saturations, but his shortness of breath is with minimal exertion has improved slightly. He denies fevers, chills, nausea, vomiting or chest discomfort. OBJECTIVE: Vital Signs: T-max 97.8, heart rate 56 to 65, respirations 15 to 18, blood pressure 102-141/62-82. General: Well nourished, well developed, no acute distress. Cardiovascular: Regular rate and rhythm. No significant murmurs, rubs or gallops. Pulmonary: Minimal crackles at bilateral bases. Abdomen: Soft, nontender, nondistended. Positive bowel sounds. Extremities: Moves all extremities well. No significant clubbing or cyanosis. 1 to 2+ lower extremity edema bilaterally. Dermatologic: Evaluation reveals no evidence of rash. LABORATORY DATA: Sodium 132, potassium 4.8, chloride 91, bicarb 32, BUN 18, creatinine 0.8, glucose 112, calcium 8.7. ASSESSMENT AND PLAN: 1. Pneumonia - Patient continues to have slow improvement with antibiotics and bronchodilators. We will continue aggressive management and treatment of hemoptysis as described below. 2. Hemoptysis - Patient continues to have slow improvement. Anticoagulation has been held. We will continue his current dose of steroids and bronchodilators. 3. Pleural effusion/lower extremity edema - Patient was provided Lasix this morning. Echocardiogram is pending. We will follow up and address medically if necessary. 4. Hyperkalemia - Patient's potassium has normalized. 5. Hyponatremia - Patient's sodium has stabilized. We will continue to follow in the setting of diuresis. 6. Hypertension - Blood pressure is reasonably controlled on his current regimen. 7. Hyperlipidemia - We will continue simvastatin therapy. 8. Paroxysmal atrial fibrillation - Patient is in a sinus-generated rhythm. His anticoagulation has been held secondary to hemoptysis. 9. Weakness - Patient is achieving very slow improvement. I suspect patient will see further improvement with rehabilitation. 10. Disposition - At this point, patient continues to require fdc care in a hospital setting. We will plan discharge to rehabilitation once appropriate. cc: Maximiliano Morris MD
[2019-03-22] MEDS: NORVASC PO SCH (21:51)
[2019-03-22] MEDS: ZOCOR PO SCH (21:54)
[2019-03-23] MEDS: DUONEB (A & A) INH SCH ×3 (03:00→11:52)
--- NOTE | 2019-03-23 07:56 | Diag Imaging Result Doc PS360 ---
CHEST-2 VIEWS - 03/23/2019 INDICATION: abnormal exam COMPARISON: 03/21/2019 FINDINGS: There has been little change in the extensive bilateral interstitial infiltrates which may represent pulmonary edema. Stable trace pleural effusions. Heart size remains borderline enlarged. No new infiltrates. IMPRESSION: No change from prior. Electronically signed by Hua Herring 03/23/2019 7:54 AM
[2019-03-23 08:17] VITALS: BP 133/65
[2019-03-23] MEDS: PRINIVIL PO SCH (10:12)
[2019-03-23] MEDS: VICON-C PO SCH (10:13)
[2019-03-23] MEDS: DOXYCYCLINE PO SCH (10:13)
[2019-03-23] MEDS: MUCINEX DM PO SCH (10:13)
[2019-03-23] MEDS: TAMBOCOR PO SCH (10:13)
[2019-03-23] MEDS: PREDNISONE PO SCH (10:13)
--- NOTE | 2019-03-23 10:37 | DISCHARGE SUMMARY ---
ADMISSION DATE: 03/04/2019 DISCHARGE DATE: 03/23/2019 ADMISSION DIAGNOSIS: Shortness of breath. DISCHARGE DIAGNOSES: 1. Pneumonia with associated respiratory failure, improving. 2. Hemoptysis, improving. 3. Pleural effusion/lower extremity edema, improving. 4. Hyponatremia, stable. 5. Hypertension, present on arrival. 6. Paroxysmal atrial fibrillation, present on arrival. 7. Profound weakness, improving. 8. Hypoxemia, stable with supplemental oxygen. PROCEDURES: 1. CT scan of the chest was performed on 03/04/2019 which revealed pneumonia superimposed on chronic obstructive pulmonary disease. Bilateral pleural effusions. 2. Multiple chest x-rays were performed while hospitalized. 3. Echocardiogram was performed on 03/22/2019 with results pending at time of discharge. CONSULTATIONS: Dr. Rosas with Pulmonary Medicine was consulted for further evaluation and management of hemoptysis. HISTORY AND PHYSICAL EXAMINATION: See admit note. PHYSICAL EXAMINATION PRIOR TO DISCHARGE: Vitals: Temperature 98.1 degrees, heart rate 56, respirations 17, blood pressure is 133/65. General: Well nourished, well developed, chronically ill-appearing, no acute distress. Cardiovascular: Regular rate and rhythm. No significant murmurs, rubs, or gallops. Pulmonary: Crackles at bilateral bases. Adequate air movement. Abdomen: Soft, nontender, nondistended. Positive bowel sounds. Extremities: Moves all extremities well. No significant clubbing or cyanosis. There is 2+ lower extremity edema bilaterally. Dermatologic: Evaluation reveals no evidence of rash. LABORATORY DATA PRIOR TO DISCHARGE: None. HOSPITAL COURSE: Patient was admitted as per history and physical examination. Hospital course per condition is as follows: 1. Acute respiratory failure secondary to pneumonia/pulmonary hemorrhage-upon admission, patient was noted to have profound shortness of breath. He was noted to have hypoxic respiratory failure. CT scan suggested an underlying pneumonia. Patient was started on broad-spectrum antibiotics including Rocephin and doxycycline therapy. Bronchodilators were initiated. Because of a very slow improvement and persistent hemoptysis, Dr. Rosas was consulted. After a prolonged hospitalization, patient ultimately achieved stabilization, but not resolution. The patient has received adequate antibiotic intervention. Patient will be discharged on prednisone 20 mg daily, bronchodilators, and oxygen supplementation. We will need to follow the patient closely as an outpatient. Follow up with Dr. Rosas will need to be arranged after discharge from rehabilitation. 2. Hemoptysis-this was quite curious. A CT scan and chest x-ray suggested pulmonary hemorrhage. This may have been secondary to interaction with CBD oil and Eliquis. Pneumonia likely also played a role. While hospitalized, patient's Eliquis has been held. The patient's overall condition continues to very slowly improve. At this point, the risk of resuming Eliquis outweighs the benefits. We will continue patient on prednisone 20 mg daily as his inflammatory markers were noted to be elevated while hospitalized. We will continue supportive care with bronchodilators and oxygen supplementation. As above, follow up with Dr. Rosas will need to be arranged. 3. Hypoxemia-while hospitalized, patient has been treated with oxygen per protocol. We will need to continue this at rehabilitation. 4. Pleural effusion/lower extremity edema-while hospitalized, patient was noted to have volume overload state. He was treated with intermittent Lasix. This likely was a consequence of increasing pulmonary pressures in the setting of pneumonia/pulmonary hemorrhage. Echocardiogram results were pending at the time of discharge. Patient will be discharged home with Lasix to be used on Sundays and Wednesdays. Daily weights and volume assessment will need to be followed. Sodium and potassium levels will also need to be followed and addressed as necessary. 5. Hyponatremia-while hospitalized, patient was noted to have intermittent episodes of hyponatremia. This was largely secondary to diuretic use. At time of discharge sodium had increased to 132. As above, this will need to be followed with further diuresis. 6. Hyperkalemia-while hospitalized, patient had transient episodes of hyperkalemia. This likely was renal associated. His lisinopril dosage was decreased. At time of discharge, this also had stabilized. 7. Hypertension-patient's blood pressure remained reasonably controlled on his current regimen. As described above, lisinopril dosage was decreased from his home dosage. We will follow this as an outpatient as well. 8. Hyperlipidemia-the patient was maintained on simvastatin therapy while hospitalized. 9. Paroxysmal atrial fibrillation-patient remained in a sinus-generated rhythm throughout hospitalization. He is treated with flecainide therapy. As he is anticoagulated secondary to atrial fibrillation and he remains in a sinus generated rhythm, the risk of anticoagulation in the setting of hemoptysis and pulmonary hemorrhage outweighs the benefits. We will continue to hold Eliquis until our next visit. We will determine if resuming this is appropriate. 10. Profound weakness-the patient was diagnosed associated with his acute illness as described above. The patient will be discharged to rehabilitation for physical therapy and occupational therapy. Plan is for the patient to return home, possibly requiring home health. DISCHARGE CONDITION: Stable. DISPOSITION: Discharged to rehabilitation. MEDICATIONS: 1. Acetaminophen 650 mg every 4 hours as needed. 2. DuoNeb every 4 hours while awake. 3. Amlodipine 5 mg at bedtime. 4. Flecainide 150 mg twice daily. 5. Mucinex DM twice daily. 6. Lisinopril 20 mg twice daily. 7. Polyethylene glycol daily as needed. 8. Simvastatin 20 mg at bedtime. 9. Vitamin B complex 1 tablet daily. 10. Lasix 80 mg p.o. on Sundays and Wednesdays. 11. Prednisone 20 mg daily. FOLLOWUP: The patient has a followup with me and Dr. Rosas upon discharge from rehabilitation. cc: Maximiliano Morris MD
--- NOTE | 2019-03-26 10:06 | PULMONOLOGY PROGRESS NOTE ---
DATE: 03/16/2019 SUBJECTIVE: The patient is awake, alert and conversant. He has had occasional blood tinged sputum. He reports slightly more fatigue today. OBJECTIVE: VITAL SIGNS: Temperature 97.2 degrees, heart rate 65, blood pressure 116/60, oxygen saturation 94% on 4 liters per nasal cannula. HEENT: Pupils are equal and reactive. Oropharynx is clear. NECK: Supple. CHEST: Reveals good air entry bilaterally with occasional rhonchi. CARDIAC: S1, S2. ABDOMEN: Soft. EXTREMITIES: Reveal mild cyanosis with trace edema. LABORATORY DATA: No new chemistries or CBC today. Chest x-ray reveals increased interstitial markings bilaterally, left greater than right. Slightly worse by Radiology interpretation but minimal change by my review. IMPRESSION: 83-year-old with 1. Acute hypoxemic respiratory failure. 2. Hemoptysis while on Eliquis. It has not stopped when Eliquis was discontinued. 3. Negative vasculitic/rheumatoid workup for hemoptysis. 4. Mild elevation in C-reactive protein. PLAN: 1. Continue to hold Eliquis. 2. Consider steroids if he does not significantly improve soon. 3. Wean oxygen as tolerated. 4. Discharge plans pending improvement in current clinical situation. cc: MD Maximiliano Minor MD
== END 2019-03-23 12:58 | DRG 193 ==
LOC: DIRADM 09:00 → 3N 11:35
PROVIDERS: ADMIT Internal Medicine; ATTEND Internal Medicine
CPT/HCPCS: 71020; 71046; 71260; 80048; 80053; 81001; 82550; 83516; 83520; 83735; 84100; 84484; 85025; 85610; 85730; 86038; 86039; 86140; 86200; 87040; 87070; 87205; 93005; 93010; 93306; 94640; 94760; 94761; 97162; 97530; 99999; A9270; C8929; J0696; J1940; J2920; J7030; J7040; J7050; J7506; J7512; Q9957; Q9967